=== PATIENT | female | born 2000 | race Caucasian/White ===

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

== ENCOUNTER 2025-03-20 13:24 | Emergency (ER) | payer BC ==
--- OUTSIDE RECORDS SUMMARY | 2025-03-20 13:32 | XMS REPORT | Continuity of Care Document ---
Author Name Unknown Address [address] [facility] [place] [address] [facility] [place] Address [address] 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 Role Phone Jackie Shea Primary Care Physician [phone] Devante Drew Attending Clinician [phone] Tammie, Sathya - Db Attending Clinician Unavailable DEVANTE EAGLE Attending Clinician Unavailable Doctor Unassigned, [place] Attending Clinician U Jermaine Mustafa Attending Clinician Unavailable Jackie Shea Attending Clinician [phone] Devante Drew Attending Clinician [phone] Isi Hurd LVN Attending Clinician Unavai SIERRA Amaro Attending Clinician UnavailMINESH Price Attending Clinician Unavailable HEIDI HERMOSILLO Attending Clinician Unavailable Heidi Schumacher Attending Clinician [phone] JACKIE EASTMAN Attending Clinician Unavailable Sathya Nunez Attending Clinician Unavailable Lab, Ang - Db Attending Clinician Unavailable DEYSI ROBERT Attending Clinician Unava ilMARVIN GimenezY Attending Clinician Unavailbakari e VIVIAN NOLASCO Attending Clinician Unavailable JANNY MIRANDA Attending Clinician Unavailable KRSITA BARBER Attending Clinician Unavaila GRIS Treadwell Attending Clinician Unavaila MAO Goff M.D. Attending Clinician STAR Francis Psy.D. Attending Clinician Unavaila MISSY Govea Attending Clinician Unavailab FRED Lees, PLyubovALyubov Attending Clinician Unavailab SANDER Miramontes M.D. Attending Clinician Unavailab FITO Frias PJose Luis Attending Clinician Liliana dominguez KNOW, DOES_NOT Admitting Clinician Unavailable HEIDI HERMOSILLO Admitting Clinician Unavailable VIVIAN NOLASCO Admitting Clinician Unavailable MISSY MURRAY Admitting Clinician Unavailab le Payers Payer Name Policy Type Policy Number Effective Date Expirati on Date Source [place] [id number] 2022 00:00:00 [employer]IG[employer] II [id number] 2021 00:00:00 Problems Condition Name Condition Details Condition Category Status Onset Date Resolution Date Last Treatment Date Treating Clinician Comments Source Wellness examinatio n Wellness examinatio n Disease Active 03-16 00:00: 00 [facility] Encounter for antibody response examinatio n Encounter for antibody response examinatio n Disease Active 03-16 00:00: 00 [facility] Recurrent acute suppurativ e otitis media with spontaneou s rupture of left tympanic membrane Recurrent acute suppurativ e otitis media with spontaneou s rupture of left tympanic membrane Disease Active 04-18 00:00: 00 [facility] Tinnitus of both ears Tinnitus of both ears Disease Active 04-18 00:00: 00 [facility] Upper respirator y tract infection, unspecifie d type Upper respirator y tract infection, unspecifie d type Disease Active 04-08 00:00: 00 [facility] Pain in joint, lower leg Pain in joint, lower leg Disease Active 08-05 00:00: 00 Overview: Formattin g of this note might be different from the original. Knee pain; resolved [facility] Anterior cruciate ligament complete tear, left, subsequent encounter Anterior cruciate ligament complete tear, left, subsequent encounter Problem Active [facility] Left knee pain Left knee pain Problem Active [facility] Concussion with loss of consciousn ess, initial encounter Concussion with loss of consciousn ess, initial encounter Problem Active [facility] Allergies, Adverse Reactions, Alerts Allergy Name Allergy Type Status Severity Reaction(s) Onset Date Inactive Date Treating Clinician Comments Source codeine DA Active U HIVES 05-30 00:00: 00 [facility] doxycycl ine DA Active U HIVES 05-30 00:00: 00 [facility] vancomyc in DA Active U rash 05-30 00:00: 00 [facility] CODEINE DRUG INGREDI Active Unknown-Cmnt 08-19 00:00: 00 [facility] DOXYCYCL INE DRUG INGREDI Active Unknown-Cmnt 08-19 00:00: 00 [facility] Codeine Propensi ty to adverse reaction s Active Unknown - See comments 08-19 00:00: 00 [facility] Doxycycl ine Propensi ty to adverse reaction s Active Unknown - See comments 08-19 00:00: 00 [facility] Family History Family Member Diagnosis Comments Start Date Stop Date Sourc e Maternal grandfather ALS (amyotrophic lateral sclerosis) [facility] Maternal grandfather Alzheimer s dementia [facility] Maternal grandmother Diabetes [facility] Maternal grandmother Hypertension [facility] Natural mother Hypothyroidism [facility] Paternal grandmother Melanoma [facility] Paternal grandmother Diabetes [facility] Paternal grandmother Lung Cancer [facility] Natural sister Hypothyroidism [facility] Social History Social Habit Start Date Stop Date Quantity Comments Source Gender [facility] Not [facility] History SDOH Alcohol Std Drinks [facility] History SDOH Alcohol Binge [facility] History SDOH Alcohol Comment [facility] History of Social function 2025-03-16 00:00:00 2025-03-16 00:00:00 [facility] Exposure to SARS-CoV-2 (event) 2023-04-08 00:00:00 2023-04-18 15:04:00 Not sure [facility] Alcoholic beverage intake 2023-04-18 00:00:00 2023-04-18 00:00:00 Lifetime non-drinker (finding) [facility] Tobacco use and exposure 2022-08-26 00:00:00 2022-08-26 00:00:00 Smokeless tobacco non-user [facility] Alcohol intake 2021-04-20 00:00:00 2021-04-20 00:00:00 Lifetime non-drinker (finding) [facility] History SDOH Alcohol Frequency 2019-08-30 00:00:00 2019-08-30 00:00:00 1 [facility] Sex assigned at 2000 00:00:00 2000 00:00:00 [facility] Smoking Status Start Date Stop Date Source Never smoked tobacco [facility] Medications Ordered Medication Name Filled Medication Name Start Date Stop Date Current Medication? Ordering Clinician Indication Dosage Frequency Signature (SIG) Comments Components Source citalopram 20 mg tablet 05-13 00:00: 00 03-16 00:00 :00 No [id number] 30mg Take 1.5 tablets by mouth in the morning. [facility] valACYclovi r (VALTREX) 500 mg tablet 04-22 00:00: 00 Yes [id number] 500mg Take 1 tablet by mouth in the morning and 1 tablet in the evening. [facility] predniSONE 20 mg tablet 04-18 00:00: 00 Yes [id number] 02 20mg Take 1 tablet by mouth in the morning. [facility] amoxicillin -clavulanat e (AUGMENTIN) 875-125 mg per tablet 04-18 00:00: 00 04-26 04:59 :00 No [id number] 02 1{tbl} Take 1 tablet by mouth in the morning and 1 tablet in the evening. Do all this for 7 days. [facility] albuterol 90 mcg/actuati on inhaler 04-08 00:00: 00 Yes [id number] 2{puff} Inhale 2 Puffs every 6 (six) hours as needed for Wheezing or Shortness of Breath. [facility] bromphenira mine-pseudo ephedrine-D M (BROMFED DM) 2-30-10 mg/5 mL syrup 04-08 00:00: 00 04-19 04:59 :00 No [id number] 10mL Take 10 mL by mouth 4 (four) times daily as needed for Congestion /Allergies for up to 10 days. [facility] methylPREDN ISolone (MEDROL, PRISCILLA,) 4 mg tablets 04-08 00:00: 00 04-14 04:59 :00 No [id number] Take by mouth SEE-INSTRU CTIONS for 5 days. follow package directions [facility] citalopram 20 mg tablet 03-31 00:00: 00 05-13 00:00 :00 No [id number] 30mg Take 1.5 tablets by mouth in the morning. [facility] citalopram 20 mg tablet 4-17 00:00: 00 03-31 00:00 :00 No [id number] 30mg Take 1.5 tablets by mouth in the morning. [facility] valACYclovi r (VALTREX) 500 mg tablet 3-31 00:00: 00 04-22 00:00 :00 No [id number] 500mg Take 1 tablet by mouth in the morning and 1 tablet in the evening. [facility] citalopram 20 mg tablet 3-20 00:00: 00 03-06 00:00 :00 No [id number] 20mg Take 1 tablet by mouth in the morning. [facility] valACYclovi r (VALTREX) 500 mg tablet 2-25 00:00: 00 02-28 00:00 :00 No [id number] 500mg Take 1 tablet by mouth in the morning and 1 tablet in the evening. [facility] citalopram 20 mg tablet 1-02 00:00: 00 02-17 00:00 :00 No [id number] 20mg TAKE 1 TABLET BY MOUTH IN THE MORNING [facility] citalopram 20 mg tablet 2021-12 0 00:00: 00 Yes [id number] 20mg Take 1 tablet by mouth in the morning. [facility] valACYclovi r (VALTREX) 500 mg tablet 2021-12 0-07 00:00: 00 01-23 00:00 :00 No [id number] 500mg Take 1 tablet by mouth in the morning and 1 tablet in the evening. [facility] citalopram 20 mg tablet 9- 00:00: 00 09-24 00:00 :00 No [id number] 20mg Take 1 tablet by mouth in the morning. [facility] valACYclovi r (VALTREX) 500 mg tablet 3-31 00:00: 00 09-06 00:00 :00 No [id number] 500mg Take 1 tablet by mouth 2 (two) times daily. [facility] citalopram 20 mg tablet 3-14 00:00: 00 08-26 00:00 :00 No [id number] 20mg Take 1 tablet by mouth daily. [facility] SERTraline (ZOLOFT) 50 mg tablet 5-06 00:00: 00 07-02 00:00 :00 No [id number] 50mg Take 1 tablet by mouth at bedtime for 90 days. Take 25mg first week, then 50mg starting week 2 [facility] amantadine HCL 100 mg capsule 7-04 00:00: 00 02-08 00:00 :00 No [facility] Amantadine HCl - 100 MG Oral Capsule Amantadine HCl - 100 MG Oral Capsule 6-04 00:00: 00 Yes MAO JAIN M.D. Q0.5D TAKE 1 CAPSULE TWICE DAILY. [facility] Immunizations Ordered Immunization Name Filled Immunization Name Date Status Comments Source Influenza Virus Vaccine Quad ID [id number] YRS 2024-10-05 00:00:00 Completed TDAP 2024-03-10 00:00:00 Completed PPD (TB) 2022-05-07 00:00:00 Completed [facility] PPD (TB) 2022-05-07 00:00:00 Completed [facility] PPD (TB) 2022-05-07 00:00:00 Completed [facility] PPD (TB) 2022-05-07 00:00:00 Completed [facility] PPD (TB) 2022-05-07 00:00:00 Completed [facility] PPD (TB) 2022-05-07 00:00:00 Completed [facility] PPD (TB) 2022-05-07 00:00:00 Completed [facility] PPD (TB) 2022-05-07 00:00:00 Completed [facility] PPD (TB) 2022-05-07 00:00:00 Completed [facility] PPD (TB) 2022-05-07 00:00:00 Completed [facility] PPD (TB) 2022-05-07 00:00:00 Completed [facility] PPD (TB) 2022-05-07 00:00:00 Completed [facility] PPD (TB) 2022-05-07 00:00:00 Completed [facility] PPD (TB) 2022-05-07 00:00:00 Completed [facility] PPD (TB) 2022-05-07 00:00:00 Completed [facility] PPD (TB) 2022-05-07 00:00:00 Completed [facility] PPD (TB) 2022-05-07 00:00:00 Completed [facility] SARS-COV-2 COVID-19 MODERNA VACCINE 2021-04-30 00:00:00 Completed [facility] SARS-COV-2 COVID-19 MODERNA VACCINE 2021-04-30 00:00:00 Completed [facility] SARS-COV-2 COVID-19 MODERNA 12+ YRS VACCINE 2021-04-30 00:00:00 Completed [facility] SARS-COV-2 COVID-19 MODERNA 12+ YRS VACCINE 2021-04-30 00:00:00 Completed [facility] SARS-COV-2 COVID-19 MODERNA 12+ YRS VACCINE 2021-04-30 00:00:00 Completed [facility] SARS-COV-2 COVID-19 MODERNA 12+ YRS VACCINE 2021-04-30 00:00:00 Completed [facility] SARS-COV-2 COVID-19 MODERNA 12+ YRS VACCINE 2021-04-30 00:00:00 Completed [facility] SARS-COV-2 COVID-19 MODERNA 12+ YRS VACCINE 2021-04-30 00:00:00 Completed [facility] SARS-COV-2 COVID-19 MODERNA 12+ YRS VACCINE 2021-04-30 00:00:00 Completed [facility] SARS-COV-2 COVID-19 MODERNA 12+ YRS VACCINE 2021-04-30 00:00:00 Completed [facility] SARS-COV-2 COVID-19 MODERNA 12+ YRS VACCINE 2021-04-30 00:00:00 Completed [facility] SARS-COV-2 COVID-19 MODERNA 12+ YRS VACCINE 2021-04-30 00:00:00 Completed [facility] SARS-COV-2 COVID-19 MODERNA 12+ YRS VACCINE 2021-04-30 00:00:00 Completed [facility] SARS-COV-2 COVID-19 MODERNA 12+ YRS VACCINE 2021-04-30 00:00:00 Completed [facility] SARS-COV-2 COVID-19 MODERNA 12+ YRS VACCINE 2021-04-30 00:00:00 Completed [facility] SARS-COV-2 COVID-19 MODERNA 12+ YRS VACCINE 2021-04-30 00:00:00 Completed [facility] SARS-COV-2 COVID-19 MODERNA 12+ YRS VACCINE 2021-04-30 00:00:00 Completed [facility] SARS-COV-2 COVID-19 MODERNA VACCINE 2021-04-02 00:00:00 Completed [facility] SARS-COV-2 COVID-19 MODERNA VACCINE 2021-04-02 00:00:00 Completed [facility] SARS-COV-2 COVID-19 MODERNA 12+ YRS VACCINE 2021-04-02 00:00:00 Completed [facility] SARS-COV-2 COVID-19 MODERNA 12+ YRS VACCINE 2021-04-02 00:00:00 Completed [facility] SARS-COV-2 COVID-19 MODERNA 12+ YRS VACCINE 2021-04-02 00:00:00 Completed [facility] SARS-COV-2 COVID-19 MODERNA 12+ YRS VACCINE 2021-04-02 00:00:00 Completed [facility] SARS-COV-2 COVID-19 MODERNA 12+ YRS VACCINE 2021-04-02 00:00:00 Completed [facility] SARS-COV-2 COVID-19 MODERNA 12+ YRS VACCINE 2021-04-02 00:00:00 Completed [facility] SARS-COV-2 COVID-19 MODERNA 12+ YRS VACCINE 2021-04-02 00:00:00 Completed [facility] SARS-COV-2 COVID-19 MODERNA 12+ YRS VACCINE 2021-04-02 00:00:00 Completed [facility] SARS-COV-2 COVID-19 MODERNA 12+ YRS VACCINE 2021-04-02 00:00:00 Completed [facility] SARS-COV-2 COVID-19 MODERNA 12+ YRS VACCINE 2021-04-02 00:00:00 Completed [facility] SARS-COV-2 COVID-19 MODERNA 12+ YRS VACCINE 2021-04-02 00:00:00 Completed [facility] SARS-COV-2 COVID-19 MODERNA 12+ YRS VACCINE 2021-04-02 00:00:00 Completed [facility] SARS-COV-2 COVID-19 MODERNA 12+ YRS VACCINE 2021-04-02 00:00:00 Completed [facility] SARS-COV-2 COVID-19 MODERNA 12+ YRS VACCINE 2021-04-02 00:00:00 Completed [facility] SARS-COV-2 COVID-19 MODERNA 12+ YRS VACCINE 2021-04-02 00:00:00 Completed [facility] Twinrix (hep a/hep b) 2020-03-16 00:00:00 Completed [facility] Twinrix (hep a/hep b) 2020-03-16 00:00:00 Completed [facility] Twinrix (hep a/hep b) 2020-03-16 00:00:00 Completed [facility] Twinrix (hep a/hep b) 2020-03-16 00:00:00 Completed [facility] Twinrix (hep a/hep b) 2020-03-16 00:00:00 Completed [facility] Twinrix (hep a/hep b) 2020-03-16 00:00:00 Completed [facility] Twinrix (hep a/hep b) 2020-03-16 00:00:00 Completed [facility] Twinrix (hep a/hep b) 2020-03-16 00:00:00 Completed [facility] Twinrix (hep a/hep b) 2020-03-16 00:00:00 Completed [facility] Twinrix (hep a/hep b) 2020-03-16 00:00:00 Completed [facility] Twinrix (hep a/hep b) 2020-03-16 00:00:00 Completed [facility] Twinrix (hep a/hep b) 2020-03-16 00:00:00 Completed [facility] Twinrix (hep a/hep b) 2020-03-16 00:00:00 Completed [facility] Twinrix (hep a/hep b) 2020-03-16 00:00:00 Completed [facility] Twinrix (hep a/hep b) 2020-03-16 00:00:00 Completed [facility] Twinrix (hep a/hep b) 2020-03-16 00:00:00 Completed [facility] Twinrix (hep a/hep b) 2020-03-16 00:00:00 Completed [facility] MMR 2019-12-03 00:00:00 Completed [facility] MMR 2019-12-03 00:00:00 Completed [facility] MMR 2019-12-03 00:00:00 Completed [facility] MMR 2019-12-03 00:00:00 Completed [facility] MMR 2019-12-03 00:00:00 Completed [facility] MMR 2019-12-03 00:00:00 Completed [facility] MMR 2019-12-03 00:00:00 Completed [facility] MMR 2019-12-03 00:00:00 Completed [facility] MMR 2019-12-03 00:00:00 Completed [facility] MMR 2019-12-03 00:00:00 Completed [facility] MMR 2019-12-03 00:00:00 Completed [facility] MMR 2019-12-03 00:00:00 Completed [facility] MMR 2019-12-03 00:00:00 Completed [facility] MMR 2019-12-03 00:00:00 Completed [facility] MMR 2019-12-03 00:00:00 Completed [facility] MMR 2019-12-03 00:00:00 Completed [facility] MMR 2019-12-03 00:00:00 Completed [facility] Twinrix (hep a/hep b) 2019-11-08 00:00:00 Completed [facility] Twinrix (hep a/hep b) 2019-11-08 00:00:00 Completed [facility] Twinrix (hep a/hep b) 2019-11-08 00:00:00 Completed [facility] Twinrix (hep a/hep b) 2019-11-08 00:00:00 Completed [facility] Twinrix (hep a/hep b) 2019-11-08 00:00:00 Completed [facility] Twinrix (hep a/hep b) 2019-11-08 00:00:00 Completed [facility] Twinrix (hep a/hep b) 2019-11-08 00:00:00 Completed [facility] Twinrix (hep a/hep b) 2019-11-08 00:00:00 Completed [facility] Twinrix (hep a/hep b) 2019-11-08 00:00:00 Completed [facility] Twinrix (hep a/hep b) 2019-11-08 00:00:00 Completed [facility] Twinrix (hep a/hep b) 2019-11-08 00:00:00 Completed [facility] Twinrix (hep a/hep b) 2019-11-08 00:00:00 Completed [facility] Twinrix (hep a/hep b) 2019-11-08 00:00:00 Completed [facility] Twinrix (hep a/hep b) 2019-11-08 00:00:00 Completed [facility] Twinrix (hep a/hep b) 2019-11-08 00:00:00 Completed [facility] Twinrix (hep a/hep b) 2019-11-08 00:00:00 Completed [facility] Twinrix (hep a/hep b) 2019-11-08 00:00:00 Completed [facility] HEP B, Adult Dosage 2019-09-15 00:00:00 Completed [facility] PPD (TB) 2019-09-15 00:00:00 Completed [facility] HEP B, Adult Dosage 2019-09-15 00:00:00 Completed [facility] PPD (TB) 2019-09-15 00:00:00 Completed [facility] HEP B, Adult Dosage 2019-09-15 00:00:00 Completed [facility] PPD (TB) 2019-09-15 00:00:00 Completed [facility] HEP B, Adult Dosage 2019-09-15 00:00:00 Completed [facility] PPD (TB) 2019-09-15 00:00:00 Completed [facility] HEP B, Adult Dosage 2019-09-15 00:00:00 Completed [facility] PPD (TB) 2019-09-15 00:00:00 Completed [facility] HEP B, Adult Dosage 2019-09-15 00:00:00 Completed [facility] PPD (TB) 2019-09-15 00:00:00 Completed [facility] HEP B, Adult Dosage 2019-09-15 00:00:00 Completed [facility] PPD (TB) 2019-09-15 00:00:00 Completed [facility] HEP B, Adult Dosage 2019-09-15 00:00:00 Completed [facility] PPD (TB) 2019-09-15 00:00:00 Completed [facility] HEP B, Adult Dosage 2019-09-15 00:00:00 Completed [facility] PPD (TB) 2019-09-15 00:00:00 Completed [facility] HEP B, Adult Dosage 2019-09-15 00:00:00 Completed [facility] PPD (TB) 2019-09-15 00:00:00 Completed [facility] HEP B, Adult Dosage 2019-09-15 00:00:00 Completed [facility] PPD (TB) 2019-09-15 00:00:00 Completed [facility] HEP B, Adult Dosage 2019-09-15 00:00:00 Completed [facility] PPD (TB) 2019-09-15 00:00:00 Completed [facility] HEP B, Adult Dosage 2019-09-15 00:00:00 Completed [facility] PPD (TB) 2019-09-15 00:00:00 Completed [facility] HEP B, Adult Dosage 2019-09-15 00:00:00 Completed [facility] PPD (TB) 2019-09-15 00:00:00 Completed [facility] HEP B, Adult Dosage 2019-09-15 00:00:00 Completed [facility] PPD (TB) 2019-09-15 00:00:00 Completed [facility] HEP B, Adult Dosage 2019-09-15 00:00:00 Completed [facility] PPD (TB) 2019-09-15 00:00:00 Completed [facility] HEP B, Adult Dosage 2019-09-15 00:00:00 Completed [facility] PPD (TB) 2019-09-15 00:00:00 Completed [facility] MMR Booster 2019-09-02 00:00:00 Completed [facility] MMR Booster 2019-09-02 00:00:00 Completed [facility] MMR Booster 2019-09-02 00:00:00 Completed [facility] MMR Booster 2019-09-02 00:00:00 Completed [facility] MMR Booster 2019-09-02 00:00:00 Completed [facility] MMR Booster 2019-09-02 00:00:00 Completed [facility] MMR Booster 2019-09-02 00:00:00 Completed [facility] MMR Booster 2019-09-02 00:00:00 Completed [facility] MMR Booster 2019-09-02 00:00:00 Completed [facility] MMR Booster 2019-09-02 00:00:00 Completed [facility] MMR Booster 2019-09-02 00:00:00 Completed [facility] MMR Booster 2019-09-02 00:00:00 Completed [facility] MMR Booster 2019-09-02 00:00:00 Completed [facility] MMR Booster 2019-09-02 00:00:00 Completed [facility] MMR Booster 2019-09-02 00:00:00 Completed [facility] MMR Booster 2019-09-02 00:00:00 Completed [facility] MMR Booster 2019-09-02 00:00:00 Completed [facility] Hepatitis A Adult 2019-08-30 00:00:00 Completed [facility] PPD (TB) 2019-08-30 00:00:00 Completed [facility] Varicella (varivax)(chicken pox) 2019-08-30 00:00:00 Completed [facility] Hepatitis A Adult 2019-08-30 00:00:00 Completed [facility] PPD (TB) 2019-08-30 00:00:00 Completed [facility] Varicella (varivax)(chicken pox) 2019-08-30 00:00:00 Completed [facility] Hepatitis A Adult 2019-08-30 00:00:00 Completed [facility] PPD (TB) 2019-08-30 00:00:00 Completed [facility] Varicella (varivax)(chicken pox) 2019-08-30 00:00:00 Completed [facility] Hepatitis A Adult 2019-08-30 00:00:00 [facility] [place] PPD (TB) 2019-08-30 00:00:00 Completed [facility] [place] Varicella (varivax)(chicken pox) 2019-08-30 00:00:00 Completed [facility] [place] Hepatitis A Adult 2019-08-30 00:00:00 Completed [facility] [place] PPD (TB) 2019-08-30 00:00:00 Completed [facility] [place] Varicella (varivax)(chicken pox) 2019-08-30 00:00:00 Completed [facility] [place] Hepatitis A Adult 2019-08-30 00:00:00 Completed [facility] [place] PPD (TB) 2019-08-30 00:00:00 Completed [facility] [place] Varicella (varivax)(chicken pox) 2019-08-30 00:00:00 Completed [facility] [place] Hepatitis A Adult 2019-08-30 00:00:00 Completed [facility] [place] PPD (TB) 2019-08-30 00:00:00 Completed [facility] [place] Varicella (varivax)(chicken pox) 2019-08-30 00:00:00 Completed [facility] [place] Hepatitis A Adult 2019-08-30 00:00:00 Completed [facility] [place] PPD (TB) 2019-08-30 00:00:00 Completed [facility] [place] Varicella (varivax)(chicken pox) 2019-08-30 00:00:00 Completed [facility] [place] Hepatitis A Adult 2019-08-30 00:00:00 Completed [facility] [place] PPD (TB) 2019-08-30 00:00:00 Completed [facility] [place] Varicella (varivax)(chicken pox) 2019-08-30 00:00:00 Completed [facility] [place] Hepatitis A Adult 2019-08-30 00:00:00 Completed [facility] [place] PPD (TB) 2019-08-30 00:00:00 Completed [facility] [place] Varicella (varivax)(chicken pox) 2019-08-30 00:00:00 Completed [facility] [place] Hepatitis A Adult 2019-08-30 00:00:00 Completed [facility] [place] PPD (TB) 2019-08-30 00:00:00 Completed [facility] [place] Varicella (varivax)(chicken pox) 2019-08-30 00:00:00 Completed [facility] [place] Hepatitis A Adult 2019-08-30 00:00:00 Completed [facility] [place] PPD (TB) 2019-08-30 00:00:00 Completed [facility] [place] Varicella (varivax)(chicken pox) 2019-08-30 00:00:00 Completed [facility] [place] Hepatitis A Adult 2019-08-30 00:00:00 Completed [facility] [place] PPD (TB) 2019-08-30 00:00:00 Completed [facility] [place] Varicella (varivax)(chicken pox) 2019-08-30 00:00:00 Completed [facility] [place] Hepatitis A Adult 2019-08-30 00:00:00 Completed [facility] [place] PPD (TB) 2019-08-30 00:00:00 Completed [facility] [place] Varicella (varivax)(chicken pox) 2019-08-30 00:00:00 Completed [facility] [place] Hepatitis A Adult 2019-08-30 00:00:00 Completed [facility] [place] PPD (TB) 2019-08-30 00:00:00 Completed [facility] [place] Varicella (varivax)(chicken pox) 2019-08-30 00:00:00 Completed [facility] [place] Hepatitis A Adult 2019-08-30 00:00:00 Completed [facility] [place] PPD (TB) 2019-08-30 00:00:00 Completed [facility] [place] Varicella (varivax)(chicken pox) 2019-08-30 00:00:00 Completed [facility] [place] Hepatitis A Adult 2019-08-30 00:00:00 Completed [facility] [place] PPD (TB) 2019-08-30 00:00:00 Completed [facility] [place] Varicella (varivax)(chicken pox) 2019-08-30 00:00:00 Completed [facility] [place] Gardasil Intramuscular Suspension 2012-12-05 00:00:00 Completed [facility] HPV 2012-12-05 00:00:00 Completed [facility] [place] HPV 2012-12-05 00:00:00 Completed [facility] [place] HPV 2012-12-05 00:00:00 Completed [facility] [place] HPV 2012-12-05 00:00:00 Completed [facility] [place] HPV 2012-12-05 00:00:00 Completed [facility] [place] HPV 2012-12-05 00:00:00 Completed [facility] [place] HPV 2012-12-05 00:00:00 Completed [facility] [place] HPV 2012-12-05 00:00:00 Completed [facility] [place] HPV 2012-12-05 00:00:00 Completed [facility] [place] HPV 2012-12-05 00:00:00 Completed [facility] [place] HPV 2012-12-05 00:00:00 Completed [facility] [place] HPV 2012-12-05 00:00:00 Completed [facility] [place] HPV 2012-12-05 00:00:00 Completed [facility] [place] HPV 2012-12-05 00:00:00 Completed [facility] [place] HPV 2012-12-05 00:00:00 Completed [facility] [place] HPV 2012-12-05 00:00:00 Completed [facility] [place] HPV 2012-12-05 00:00:00 Completed [facility] [place] Varivax 1350 PFU/0.5ML Subcutaneous Injectable 2012-07-17 00:00:00 Completed [facility] Boostrix 5-2.5-18.5 Intramuscular Suspension 2012-07-17 00:00:00 Completed [facility] Meningococcal, MCV4, unspecified conjugate formulation(groups A, C, Y and W-135) 2012-07-17 00:00:00 Completed [facility] TDAP (ADACEL) VACCINE 2012-07-17 00:00:00 Completed [facility] [place] Meningococcal Vaccine 2012-07-17 00:00:00 Completed [facility] [place] Varicella (varivax)(chicken pox) 2012-07-17 00:00:00 Completed [facility] [place] TDAP (ADACEL) VACCINE 2012-07-17 00:00:00 Completed [facility] [place] Meningococcal Vaccine 2012-07-17 00:00:00 Completed [facility] [place] Varicella (varivax)(chicken pox) 2012-07-17 00:00:00 Completed [facility] [place] TDAP (ADACEL) VACCINE 2012-07-17 00:00:00 Completed [facility] [place] Meningococcal Vaccine 2012-07-17 00:00:00 Completed [facility] [place] Varicella (varivax)(chicken pox) 2012-07-17 00:00:00 Completed [facility] [place] TDAP (ADACEL) VACCINE 2012-07-17 00:00:00 Completed [facility] [place] Meningococcal Vaccine 2012-07-17 00:00:00 Completed [facility] [place] TDAP (ADACEL) VACCINE 2012-07-17 00:00:00 Completed [facility] [place] Meningococcal Vaccine 2012-07-17 00:00:00 Completed [facility] [place] Varicella (varivax)(chicken pox) 2012-07-17 00:00:00 Completed [facility] [place] TDAP (ADACEL) VACCINE 2012-07-17 00:00:00 Completed [facility] [place] Meningococcal Vaccine 2012-07-17 00:00:00 Completed [facility] [place] Varicella (varivax)(chicken pox) 2012-07-17 00:00:00 Completed [facility] [place] TDAP (ADACEL) VACCINE 2012-07-17 00:00:00 Completed [facility] [place] Meningococcal Vaccine 2012-07-17 00:00:00 Completed [facility] [place] Varicella (varivax)(chicken pox) 2012-07-17 00:00:00 Completed [facility] [place] TDAP (ADACEL) VACCINE 2012-07-17 00:00:00 Completed [facility] [place] Meningococcal Vaccine 2012-07-17 00:00:00 Completed [facility] [place] Varicella (varivax)(chicken pox) 2012-07-17 00:00:00 Completed [facility] [place] TDAP (ADACEL) VACCINE 2012-07-17 00:00:00 Completed [facility] [place] Meningococcal Vaccine 2012-07-17 00:00:00 Completed [facility] [place] Varicella (varivax)(chicken pox) 2012-07-17 00:00:00 Completed [facility] [place] TDAP (ADACEL) VACCINE 2012-07-17 00:00:00 Completed [facility] [place] Meningococcal Vaccine 2012-07-17 00:00:00 Completed [facility] [place] Varicella (varivax)(chicken pox) 2012-07-17 00:00:00 Completed [facility] [place] TDAP (ADACEL) VACCINE 2012-07-17 00:00:00 Completed [facility] [place] Meningococcal Vaccine 2012-07-17 00:00:00 Completed [facility] [place] Varicella (varivax)(chicken pox) 2012-07-17 00:00:00 Completed [facility] [place] TDAP (ADACEL) VACCINE 2012-07-17 00:00:00 Completed [facility] [place] Meningococcal Vaccine 2012-07-17 00:00:00 Completed [facility] [place] Varicella (varivax)(chicken pox) 2012-07-17 00:00:00 Completed [facility] [place] TDAP (ADACEL) VACCINE 2012-07-17 00:00:00 Completed [facility] [place] Meningococcal Vaccine 2012-07-17 00:00:00 Completed [facility] [place] Varicella (varivax)(chicken pox) 2012-07-17 00:00:00 Completed [facility] [place] TDAP (ADACEL) VACCINE 2012-07-17 00:00:00 Completed [facility] [place] Meningococcal Vaccine 2012-07-17 00:00:00 Completed [facility] [place] Varicella (varivax)(chicken pox) 2012-07-17 00:00:00 Completed [facility] [place] TDAP (ADACEL) VACCINE 2012-07-17 00:00:00 Completed [facility] [place] Meningococcal Vaccine 2012-07-17 00:00:00 Completed [facility] [place] Varicella (varivax)(chicken pox) 2012-07-17 00:00:00 Completed [facility] [place] TDAP (ADACEL) VACCINE 2012-07-17 00:00:00 Completed [facility] [place] Meningococcal Vaccine 2012-07-17 00:00:00 Completed [facility] [place] Varicella (varivax)(chicken pox) 2012-07-17 00:00:00 Completed [facility] [place] Varicella (varivax)(chicken pox) 2012-07-17 00:00:00 Completed [facility] [place] TDAP (ADACEL) VACCINE 2012-07-17 00:00:00 Completed [facility] [place] Meningococcal Vaccine 2012-07-17 00:00:00 Completed [facility] [place] Varicella (varivax)(chicken pox) 2012-07-17 00:00:00 Completed [facility] [place] influenza virus vaccine, unspecified formulation 2004-10-08 00:00:00 Completed [facility] Ipol Injection Injectable 2004-02-27 00:00:00 Completed [facility] M-M-R II Subcutaneous Injectable 2004-02-27 00:00:00 Completed [facility] DTaP, unspecified formulation 2004-02-27 00:00:00 Completed [facility] DTAP 2004-02-27 00:00:00 Completed [facility] [place] MMR 2004-02-27 00:00:00 Completed [facility] [place] Polio (IPV/OPV) 2004-02-27 00:00:00 Completed [facility] [place] DTAP 2004-02-27 00:00:00 Completed [facility] [place] MMR 2004-02-27 00:00:00 Completed [facility] [place] Polio (IPV/OPV) 2004-02-27 00:00:00 Completed [facility] [place] DTAP 2004-02-27 00:00:00 Completed [facility] [place] MMR 2004-02-27 00:00:00 Completed [facility] [place] Polio (IPV/OPV) 2004-02-27 00:00:00 Completed [facility] [place] DTAP 2004-02-27 00:00:00 Completed [facility] [place] Polio (IPV/OPV) 2004-02-27 00:00:00 Completed [facility] [place] DTAP 2004-02-27 00:00:00 Completed [facility] [place] MMR 2004-02-27 00:00:00 Completed [facility] [place] Polio (IPV/OPV) 2004-02-27 00:00:00 Completed [facility] [place] DTAP 2004-02-27 00:00:00 Completed [facility] [place] MMR 2004-02-27 00:00:00 Completed [facility] [place] Polio (IPV/OPV) 2004-02-27 00:00:00 Completed [facility] [place] DTAP 2004-02-27 00:00:00 Completed [facility] [place] MMR 2004-02-27 00:00:00 Completed [facility] [place] Polio (IPV/OPV) 2004-02-27 00:00:00 Completed [facility] [place] DTAP 2004-02-27 00:00:00 Completed [facility] [place] MMR 2004-02-27 00:00:00 Completed [facility] [place] Polio (IPV/OPV) 2004-02-27 00:00:00 Completed [facility] [place] DTAP 2004-02-27 00:00:00 Completed [facility] [place] MMR 2004-02-27 00:00:00 Completed [facility] [place] Polio (IPV/OPV) 2004-02-27 00:00:00 Completed [facility] [place] DTAP 2004-02-27 00:00:00 Completed [facility] [place] MMR 2004-02-27 00:00:00 Completed [facility] [place] Polio (IPV/OPV) 2004-02-27 00:00:00 Completed [facility] [place] DTAP 2004-02-27 00:00:00 Completed [facility] [place] MMR 2004-02-27 00:00:00 Completed [facility] [place] Polio (IPV/OPV) 2004-02-27 00:00:00 Completed [facility] [place] DTAP 2004-02-27 00:00:00 Completed [facility] [place] MMR 2004-02-27 00:00:00 Completed [facility] [place] Polio (IPV/OPV) 2004-02-27 00:00:00 Completed [facility] [place] DTAP 2004-02-27 00:00:00 Completed [facility] [place] MMR 2004-02-27 00:00:00 Completed [facility] [place] Polio (IPV/OPV) 2004-02-27 00:00:00 Completed [facility] [place] DTAP 2004-02-27 00:00:00 Completed [facility] [place] MMR 2004-02-27 00:00:00 Completed [facility] [place] Polio (IPV/OPV) 2004-02-27 00:00:00 Completed [facility] [place] DTAP 2004-02-27 00:00:00 Completed [facility] [place] MMR 2004-02-27 00:00:00 Completed [facility] [place] Polio (IPV/OPV) 2004-02-27 00:00:00 Completed [facility] [place] DTAP 2004-02-27 00:00:00 Completed [facility] [place] MMR 2004-02-27 00:00:00 Completed [facility] [place] Polio (IPV/OPV) 2004-02-27 00:00:00 Completed [facility] [place] MMR 2004-02-27 00:00:00 Completed [facility] [place] DTAP 2004-02-27 00:00:00 Completed [facility] [place] MMR 2004-02-27 00:00:00 Completed [facility] [place] Polio (IPV/OPV) 2004-02-27 00:00:00 Completed [facility] [place] Hib, Haemophilus influenzae type b vaccine, HbOC conjugate 2001-12-11 00:00:00 Completed [facility] Pneumo (Prevnar 7) 2001-12-11 00:00:00 Completed [facility] DTaP, unspecified formulation 2001-12-11 00:00:00 Completed [facility] DTAP 2001-12-11 00:00:00 Completed [facility] [place] HIB 4 Dose Schedule 2001-12-11 00:00:00 Completed [facility] [place] Pneumococcal 13 Conjugate, PCV13 (Prevnar 13) 2001-12-11 00:00:00 Completed [facility] [place] DTAP 2001-12-11 00:00:00 Completed [facility] [place] HIB 4 Dose Schedule 2001-12-11 00:00:00 Completed [facility] [place] Pneumococcal 13 Conjugate, PCV13 (Prevnar 13) 2001-12-11 00:00:00 Completed [facility] [place] DTAP 2001-12-11 00:00:00 Completed [facility] [place] HIB 4 Dose Schedule 2001-12-11 00:00:00 Completed [facility] [place] Pneumococcal 13 Conjugate, PCV13 (Prevnar 13) 2001-12-11 00:00:00 Completed [facility] [place] DTAP 2001-12-11 00:00:00 Completed [facility] [place] HIB 4 Dose Schedule 2001-12-11 00:00:00 Completed [facility] [place] Pneumococcal 13 Conjugate, PCV13 (Prevnar 13) 2001-12-11 00:00:00 Completed [facility] [place] DTAP 2001-12-11 00:00:00 Completed [facility] [place] HIB 4 Dose Schedule 2001-12-11 00:00:00 Completed [facility] [place] Pneumococcal 13 Conjugate, PCV13 (Prevnar 13) 2001-12-11 00:00:00 Completed [facility] [place] DTAP 2001-12-11 00:00:00 Completed [facility] [place] HIB 4 Dose Schedule 2001-12-11 00:00:00 Completed [facility] [place] Pneumococcal 13 Conjugate, PCV13 (Prevnar 13) 2001-12-11 00:00:00 Completed [facility] [place] DTAP 2001-12-11 00:00:00 Completed [facility] [place] HIB 4 Dose Schedule 2001-12-11 00:00:00 Completed [facility] [place] Pneumococcal 13 Conjugate, PCV13 (Prevnar 13) 2001-12-11 00:00:00 Completed [facility] [place] DTAP 2001-12-11 00:00:00 Completed [facility] [place] HIB 4 Dose Schedule 2001-12-11 00:00:00 Completed [facility] [place] Pneumococcal 13 Conjugate, PCV13 (Prevnar 13) 2001-12-11 00:00:00 Completed [facility] [place] DTAP 2001-12-11 00:00:00 Completed [facility] [place] HIB 4 Dose Schedule 2001-12-11 00:00:00 Completed [facility] [place] Pneumococcal 13 Conjugate, PCV13 (Prevnar 13) 2001-12-11 00:00:00 Completed [facility] [place] DTAP 2001-12-11 00:00:00 Completed [facility] [place] HIB 4 Dose Schedule 2001-12-11 00:00:00 Completed [facility] [place] Pneumococcal 13 Conjugate, PCV13 (Prevnar 13) 2001-12-11 00:00:00 Completed [facility] [place] DTAP 2001-12-11 00:00:00 Completed [facility] [place] HIB 4 Dose Schedule 2001-12-11 00:00:00 Completed [facility] [place] Pneumococcal 13 Conjugate, PCV13 (Prevnar 13) 2001-12-11 00:00:00 Completed [facility] [place] DTAP 2001-12-11 00:00:00 Completed [facility] [place] HIB 4 Dose Schedule 2001-12-11 00:00:00 Completed [facility] [place] Pneumococcal 13 Conjugate, PCV13 (Prevnar 13) 2001-12-11 00:00:00 Completed [facility] [place] DTAP 2001-12-11 00:00:00 Completed [facility] [place] HIB 4 Dose Schedule 2001-12-11 00:00:00 Completed [facility] [place] Pneumococcal 13 Conjugate, PCV13 (Prevnar 13) 2001-12-11 00:00:00 Completed [facility] [place] DTAP 2001-12-11 00:00:00 Completed [facility] [place] HIB 4 Dose Schedule 2001-12-11 00:00:00 Completed [facility] [place] Pneumococcal 13 Conjugate, PCV13 (Prevnar 13) 2001-12-11 00:00:00 Completed [facility] [place] DTAP 2001-12-11 00:00:00 Completed [facility] [place] HIB 4 Dose Schedule 2001-12-11 00:00:00 Completed [facility] [place] Pneumococcal 13 Conjugate, PCV13 (Prevnar 13) 2001-12-11 00:00:00 Completed [facility] [place] DTAP 2001-12-11 00:00:00 Completed [facility] [place] HIB 4 Dose Schedule 2001-12-11 00:00:00 Completed [facility] [place] Pneumococcal 13 Conjugate, PCV13 (Prevnar 13) 2001-12-11 00:00:00 Completed [facility] [place] DTAP 2001-12-11 00:00:00 Completed [facility] [place] HIB 4 Dose Schedule 2001-12-11 00:00:00 Completed [facility] [place] Pneumococcal 13 Conjugate, PCV13 (Prevnar 13) 2001-12-11 00:00:00 Completed [facility] [place] Hib, Haemophilus influenzae type b vaccine, HbOC conjugate 2001-07-17 00:00:00 Completed [facility] Pneumo (Prevnar 7) 2001-07-17 00:00:00 Completed [facility] DTaP, unspecified formulation 2001-07-17 00:00:00 Completed [facility] DTAP 2001-07-17 00:00:00 Completed [facility] [place] HIB 4 Dose Schedule 2001-07-17 00:00:00 Completed [facility] [place] Pneumococcal 13 Conjugate, PCV13 (Prevnar 13) 2001-07-17 00:00:00 Completed [facility] [place] DTAP 2001-07-17 00:00:00 Completed [facility] [place] HIB 4 Dose Schedule 2001-07-17 00:00:00 Completed [facility] [place] Pneumococcal 13 Conjugate, PCV13 (Prevnar 13) 2001-07-17 00:00:00 Completed [facility] [place] DTAP 2001-07-17 00:00:00 Completed [facility] [place] HIB 4 Dose Schedule 2001-07-17 00:00:00 Completed [facility] [place] Pneumococcal 13 Conjugate, PCV13 (Prevnar 13) 2001-07-17 00:00:00 Completed [facility] [place] DTAP 2001-07-17 00:00:00 Completed [facility] [place] HIB 4 Dose Schedule 2001-07-17 00:00:00 Completed [facility] [place] Pneumococcal 13 Conjugate, PCV13 (Prevnar 13) 2001-07-17 00:00:00 Completed [facility] [place] DTAP 2001-07-17 00:00:00 Completed [facility] [place] HIB 4 Dose Schedule 2001-07-17 00:00:00 Completed [facility] [place] Pneumococcal 13 Conjugate, PCV13 (Prevnar 13) 2001-07-17 00:00:00 Completed [facility] [place] DTAP 2001-07-17 00:00:00 Completed [facility] [place] HIB 4 Dose Schedule 2001-07-17 00:00:00 Completed [facility] [place] Pneumococcal 13 Conjugate, PCV13 (Prevnar 13) 2001-07-17 00:00:00 Completed [facility] [place] DTAP 2001-07-17 00:00:00 Completed [facility] [place] HIB 4 Dose Schedule 2001-07-17 00:00:00 Completed [facility] [place] Pneumococcal 13 Conjugate, PCV13 (Prevnar 13) 2001-07-17 00:00:00 Completed [facility] [place] DTAP 2001-07-17 00:00:00 Completed [facility] [place] HIB 4 Dose Schedule 2001-07-17 00:00:00 Completed [facility] [place] Pneumococcal 13 Conjugate, PCV13 (Prevnar 13) 2001-07-17 00:00:00 Completed [facility] [place] DTAP 2001-07-17 00:00:00 Completed [facility] [place] HIB 4 Dose Schedule 2001-07-17 00:00:00 Completed [facility] [place] Pneumococcal 13 Conjugate, PCV13 (Prevnar 13) 2001-07-17 00:00:00 Completed [facility] [place] DTAP 2001-07-17 00:00:00 Completed [facility] [place] HIB 4 Dose Schedule 2001-07-17 00:00:00 Completed [facility] [place] Pneumococcal 13 Conjugate, PCV13 (Prevnar 13) 2001-07-17 00:00:00 Completed [facility] [place] DTAP 2001-07-17 00:00:00 Completed [facility] [place] HIB 4 Dose Schedule 2001-07-17 00:00:00 Completed [facility] [place] Pneumococcal 13 Conjugate, PCV13 (Prevnar 13) 2001-07-17 00:00:00 Completed [facility] [place] DTAP 2001-07-17 00:00:00 Completed [facility] [place] HIB 4 Dose Schedule 2001-07-17 00:00:00 Completed [facility] [place] Pneumococcal 13 Conjugate, PCV13 (Prevnar 13) 2001-07-17 00:00:00 Completed [facility] [place] DTAP 2001-07-17 00:00:00 Completed [facility] [place] HIB 4 Dose Schedule 2001-07-17 00:00:00 Completed [facility] [place] Pneumococcal 13 Conjugate, PCV13 (Prevnar 13) 2001-07-17 00:00:00 Completed [facility] [place] DTAP 2001-07-17 00:00:00 Completed [facility] [place] HIB 4 Dose Schedule 2001-07-17 00:00:00 Completed [facility] [place] Pneumococcal 13 Conjugate, PCV13 (Prevnar 13) 2001-07-17 00:00:00 Completed [facility] [place] DTAP 2001-07-17 00:00:00 Completed [facility] [place] HIB 4 Dose Schedule 2001-07-17 00:00:00 Completed [facility] [place] Pneumococcal 13 Conjugate, PCV13 (Prevnar 13) 2001-07-17 00:00:00 Completed [facility] [place] DTAP 2001-07-17 00:00:00 Completed [facility] [place] HIB 4 Dose Schedule 2001-07-17 00:00:00 Completed [facility] [place] Pneumococcal 13 Conjugate, PCV13 (Prevnar 13) 2001-07-17 00:00:00 Completed [facility] [place] DTAP 2001-07-17 00:00:00 Completed [facility] [place] HIB 4 Dose Schedule 2001-07-17 00:00:00 Completed [facility] [place] Pneumococcal 13 Conjugate, PCV13 (Prevnar 13) 2001-07-17 00:00:00 Completed [facility] [place] Hepatitis B, pediatric/adolescen t dosage 2000-12-05 00:00:00 Completed [facility] M-M-R II Subcutaneous Injectable 2000-12-05 00:00:00 Completed [facility] Varivax 1350 PFU/0.5ML Subcutaneous Injectable 2000-12-05 00:00:00 Completed [facility] Hep B, Adol or Pedi Dosage 2000-12-05 00:00:00 Completed [facility] [place] MMR 2000-12-05 00:00:00 Completed [facility] [place] Varicella (varivax)(chicken pox) 2000-12-05 00:00:00 Completed [facility] [place] Hep B, Adol or Pedi Dosage 2000-12-05 00:00:00 Completed [facility] [place] MMR 2000-12-05 00:00:00 Completed [facility] [place] Varicella (varivax)(chicken pox) 2000-12-05 00:00:00 Completed [facility] [place] Hep B, Adol or Pedi Dosage 2000-12-05 00:00:00 Completed [facility] [place] MMR 2000-12-05 00:00:00 Completed [facility] [place] Varicella (varivax)(chicken pox) 2000-12-05 00:00:00 [facility] [facility] Hep B, Adol or Pedi Dosage 2000-12-05 00:00:00 Completed [facility] MMR 2000-12-05 00:00:00 Completed [facility] Varicella (varivax)(chicken pox) 2000-12-05 00:00:00 Completed [facility] Hep B, Adol or Pedi Dosage 2000-12-05 00:00:00 Completed [facility] MMR 2000-12-05 00:00:00 Completed [facility] Varicella (varivax)(chicken pox) 2000-12-05 00:00:00 Completed [facility] Hep B, Adol or Pedi Dosage 2000-12-05 00:00:00 Completed [facility] MMR 2000-12-05 00:00:00 Completed [facility] Varicella (varivax)(chicken pox) 2000-12-05 00:00:00 Completed [facility] Hep B, Adol or Pedi Dosage 2000-12-05 00:00:00 Completed [facility] MMR 2000-12-05 00:00:00 Completed [facility] Varicella (varivax)(chicken pox) 2000-12-05 00:00:00 Completed [facility] Hep B, Adol or Pedi Dosage 2000-12-05 00:00:00 Completed [facility] MMR 2000-12-05 00:00:00 Completed [facility] Varicella (varivax)(chicken pox) 2000-12-05 00:00:00 Completed [facility] Hep B, Adol or Pedi Dosage 2000-12-05 00:00:00 Completed [facility] MMR 2000-12-05 00:00:00 Completed [facility] Varicella (varivax)(chicken pox) 2000-12-05 00:00:00 Completed [facility] Hep B, Adol or Pedi Dosage 2000-12-05 00:00:00 Completed [facility] MMR 2000-12-05 00:00:00 Completed [facility] Varicella (varivax)(chicken pox) 2000-12-05 00:00:00 Completed [facility] Hep B, Adol or Pedi Dosage 2000-12-05 00:00:00 Completed [facility] MMR 2000-12-05 00:00:00 Completed [facility] Varicella (varivax)(chicken pox) 2000-12-05 00:00:00 Completed [facility] Hep B, Adol or Pedi Dosage 2000-12-05 00:00:00 Completed [facility] MMR 2000-12-05 00:00:00 Completed [facility] Varicella (varivax)(chicken pox) 2000-12-05 00:00:00 Completed [facility] Hep B, Adol or Pedi Dosage 2000-12-05 00:00:00 Completed [facility] MMR 2000-12-05 00:00:00 Completed [facility] Varicella (varivax)(chicken pox) 2000-12-05 00:00:00 Completed [facility] Hep B, Adol or Pedi Dosage 2000-12-05 00:00:00 Completed [facility] MMR 2000-12-05 00:00:00 Completed [facility] Varicella (varivax)(chicken pox) 2000-12-05 00:00:00 Completed [facility] Hep B, Adol or Pedi Dosage 2000-12-05 00:00:00 Completed [facility] MMR 2000-12-05 00:00:00 Completed [facility] Varicella (varivax)(chicken pox) 2000-12-05 00:00:00 Completed [facility] Hep B, Adol or Pedi Dosage 2000-12-05 00:00:00 Completed [facility] MMR 2000-12-05 00:00:00 Completed [facility] Varicella (varivax)(chicken pox) 2000-12-05 00:00:00 Completed [facility] Hep B, Adol or Pedi Dosage 2000-12-05 00:00:00 Completed [facility] MMR 2000-12-05 00:00:00 Completed [facility] Varicella (varivax)(chicken pox) 2000-12-05 00:00:00 Completed [facility] Hep B, Adol or Pedi Dosage 2000-05-23 00:00:00 Completed [facility] DTAP 2000-05-23 00:00:00 Completed [facility] HIB 4 Dose Schedule 2000-05-23 00:00:00 Completed [facility] Hep B, Adol or Pedi Dosage 2000-05-23 00:00:00 Completed [facility] Hep B, Adol or Pedi Dosage 2000-05-23 00:00:00 Completed [facility] DTAP 2000-05-23 00:00:00 Completed [facility] HIB 4 Dose Schedule 2000-05-23 00:00:00 Completed [facility] Hep B, Adol or Pedi Dosage 2000-05-23 00:00:00 Completed [facility] DTP - HIB (Tetramune) 2000-05-23 00:00:00 Completed [facility] Hepatitis B, pediatric/adolescen t dosage 2000-05-23 00:00:00 Completed [facility] DTAP 2000-05-23 00:00:00 Completed [facility] HIB 4 Dose Schedule 2000-05-23 00:00:00 Completed [facility] Hep B, Adol or Pedi Dosage 2000-05-23 00:00:00 Completed [facility] DTAP 2000-05-23 00:00:00 Completed [facility] HIB 4 Dose Schedule 2000-05-23 00:00:00 Completed [facility] Hep B, Adol or Pedi Dosage 2000-05-23 00:00:00 Completed [facility] DTAP 2000-05-23 00:00:00 Completed [facility] HIB 4 Dose Schedule 2000-05-23 00:00:00 Completed [facility] Hep B, Adol or Pedi Dosage 2000-05-23 00:00:00 Completed [facility] DTAP 2000-05-23 00:00:00 Completed [facility] HIB 4 Dose Schedule 2000-05-23 00:00:00 Completed [facility] DTAP 2000-05-23 00:00:00 Completed [facility] HIB 4 Dose Schedule 2000-05-23 00:00:00 Completed [facility] Hep B, Adol or Pedi Dosage 2000-05-23 00:00:00 Completed [facility] DTAP 2000-05-23 00:00:00 Completed [facility] HIB 4 Dose Schedule 2000-05-23 00:00:00 Completed [facility] Hep B, Adol or Pedi Dosage 2000-05-23 00:00:00 Completed [facility] DTAP 2000-05-23 00:00:00 Completed [facility] HIB 4 Dose Schedule 2000-05-23 00:00:00 Completed [facility] Hep B, Adol or Pedi Dosage 2000-05-23 00:00:00 Completed [facility] DTAP 2000-05-23 00:00:00 Completed [facility] HIB 4 Dose Schedule 2000-05-23 00:00:00 Completed [facility] Hep B, Adol or Pedi Dosage 2000-05-23 00:00:00 Completed [facility] DTAP 2000-05-23 00:00:00 Completed [facility] HIB 4 Dose Schedule 2000-05-23 00:00:00 Completed [facility] Hep B, Adol or Pedi Dosage 2000-05-23 00:00:00 Completed [facility] DTAP 2000-05-23 00:00:00 Completed [facility] HIB 4 Dose Schedule 2000-05-23 00:00:00 Completed [facility] Hep B, Adol or Pedi Dosage 2000-05-23 00:00:00 Completed [facility] DTAP 2000-05-23 00:00:00 Completed [facility] HIB 4 Dose Schedule 2000-05-23 00:00:00 Completed [facility] Hep B, Adol or Pedi Dosage 2000-05-23 00:00:00 Completed [facility] DTAP 2000-05-23 00:00:00 Completed [facility] HIB 4 Dose Schedule 2000-05-23 00:00:00 Completed [facility] Hep B, Adol or Pedi Dosage 2000-05-23 00:00:00 Completed [facility] DTAP 2000-05-23 00:00:00 Completed [facility] HIB 4 Dose Schedule 2000-05-23 00:00:00 Completed [facility] Hep B, Adol or Pedi Dosage 2000-05-23 00:00:00 Completed [facility] DTAP 2000-05-23 00:00:00 Completed [facility] HIB 4 Dose Schedule 2000-05-23 00:00:00 Completed [facility] Hep B, Adol or Pedi Dosage 2000-05-23 00:00:00 Completed [facility] DTAP 2000-05-23 00:00:00 Completed [facility] HIB 4 Dose Schedule 2000-05-23 00:00:00 Completed [facility] DTAP 2000-03-31 00:00:00 Completed [facility] HIB 4 Dose Schedule 2000-03-31 00:00:00 Completed [facility] Polio (IPV/OPV) 2000-03-31 00:00:00 Completed [facility] DTAP 2000-03-31 00:00:00 Completed [facility] HIB 4 Dose Schedule 2000-03-31 00:00:00 Completed [facility] Polio (IPV/OPV) 2000-03-31 00:00:00 Completed [facility] DTAP 2000-03-31 00:00:00 Completed [facility] HIB 4 Dose Schedule 2000-03-31 00:00:00 Completed [facility] Polio (IPV/OPV) 2000-03-31 00:00:00 Completed [facility] DTAP 2000-03-31 00:00:00 Completed [facility] HIB 4 Dose Schedule 2000-03-31 00:00:00 Completed [facility] Polio (IPV/OPV) 2000-03-31 00:00:00 Completed [facility] DTAP 2000-03-31 00:00:00 Completed [facility] HIB 4 Dose Schedule 2000-03-31 00:00:00 Completed [facility] Polio (IPV/OPV) 2000-03-31 00:00:00 Completed [facility] DTAP 2000-03-31 00:00:00 Completed [facility] HIB 4 Dose Schedule 2000-03-31 00:00:00 Completed [facility] Polio (IPV/OPV) 2000-03-31 00:00:00 Completed [facility] DTAP 2000-03-31 00:00:00 Completed [facility] HIB 4 Dose Schedule 2000-03-31 00:00:00 Completed [facility] Polio (IPV/OPV) 2000-03-31 00:00:00 Completed [facility] DTAP 2000-03-31 00:00:00 Completed [facility] HIB 4 Dose Schedule 2000-03-31 00:00:00 Completed [facility] Polio (IPV/OPV) 2000-03-31 00:00:00 Completed [facility] DTAP 2000-03-31 00:00:00 Completed [facility] HIB 4 Dose Schedule 2000-03-31 00:00:00 Completed [facility] Polio (IPV/OPV) 2000-03-31 00:00:00 Completed [facility] DTAP 2000-03-31 00:00:00 Completed [facility] HIB 4 Dose Schedule 2000-03-31 00:00:00 Completed [facility] Polio (IPV/OPV) 2000-03-31 00:00:00 Completed [facility] DTAP 2000-03-31 00:00:00 Completed [facility] HIB 4 Dose Schedule 2000-03-31 00:00:00 Completed [facility] Polio (IPV/OPV) 2000-03-31 00:00:00 Completed [facility] DTAP 2000-03-31 00:00:00 Completed [facility] HIB 4 Dose Schedule 2000-03-31 00:00:00 Completed [facility] Polio (IPV/OPV) 2000-03-31 00:00:00 Completed [facility] DTAP 2000-03-31 00:00:00 Completed [facility] HIB 4 Dose Schedule 2000-03-31 00:00:00 Completed [facility] Polio (IPV/OPV) 2000-03-31 00:00:00 Completed [facility] DTAP 2000-03-31 00:00:00 Completed [facility] HIB 4 Dose Schedule 2000-03-31 00:00:00 Completed [facility] Polio (IPV/OPV) 2000-03-31 00:00:00 Completed [facility] DTAP 2000-03-31 00:00:00 Completed [facility] HIB 4 Dose Schedule 2000-03-31 00:00:00 Completed [facility] Polio (IPV/OPV) 2000-03-31 00:00:00 Completed [facility] DTAP 2000-03-31 00:00:00 Completed [facility] HIB 4 Dose Schedule 2000-03-31 00:00:00 Completed [facility] Polio (IPV/OPV) 2000-03-31 00:00:00 Completed [facility] DTAP 2000-03-31 00:00:00 Completed [facility] HIB 4 Dose Schedule 2000-03-31 00:00:00 Completed [facility] Polio (IPV/OPV) 2000-03-31 00:00:00 Completed [facility] DTP - HIB (Tetramune) 2000-03-31 00:00:00 Completed [facility] Ipol Injection Injectable 2000-03-31 00:00:00 Completed [facility] DTAP 2000-01-04 00:00:00 Completed [facility] HIB 4 Dose Schedule 2000-01-04 00:00:00 Completed [facility] Polio (IPV/OPV) 2000-01-04 00:00:00 Completed [facility] DTAP 2000-01-04 00:00:00 Completed [facility] HIB 4 Dose Schedule 2000-01-04 00:00:00 Completed [facility] Polio (IPV/OPV) 2000-01-04 00:00:00 Completed [facility] DTAP 2000-01-04 00:00:00 Completed [facility] HIB 4 Dose Schedule 2000-01-04 00:00:00 Completed [facility] Polio (IPV/OPV) 2000-01-04 00:00:00 Completed [facility] DTAP 2000-01-04 00:00:00 Completed [facility] HIB 4 Dose Schedule 2000-01-04 00:00:00 Completed [facility] Polio (IPV/OPV) 2000-01-04 00:00:00 Completed [facility] DTAP 2000-01-04 00:00:00 Completed [facility] HIB 4 Dose Schedule 2000-01-04 00:00:00 Completed [facility] Polio (IPV/OPV) 2000-01-04 00:00:00 Completed [facility] DTAP 2000-01-04 00:00:00 Completed [facility] HIB 4 Dose Schedule 2000-01-04 00:00:00 Completed [facility] Polio (IPV/OPV) 2000-01-04 00:00:00 Completed [facility] DTAP 2000-01-04 00:00:00 Completed [facility] HIB 4 Dose Schedule 2000-01-04 00:00:00 Completed [facility] Polio (IPV/OPV) 2000-01-04 00:00:00 Completed [facility] DTAP 2000-01-04 00:00:00 Completed [facility] HIB 4 Dose Schedule 2000-01-04 00:00:00 Completed [facility] Polio (IPV/OPV) 2000-01-04 00:00:00 Completed [facility] DTAP 2000-01-04 00:00:00 Completed [facility] HIB 4 Dose Schedule 2000-01-04 00:00:00 Completed [facility] Polio (IPV/OPV) 2000-01-04 00:00:00 Completed [facility] DTAP 2000-01-04 00:00:00 Completed [facility] HIB 4 Dose Schedule 2000-01-04 00:00:00 Completed [facility] Polio (IPV/OPV) 2000-01-04 00:00:00 Completed [facility] DTAP 2000-01-04 00:00:00 Completed [facility] HIB 4 Dose Schedule 2000-01-04 00:00:00 Completed [facility] Polio (IPV/OPV) 2000-01-04 00:00:00 Completed [facility] DTAP 2000-01-04 00:00:00 Completed [facility] HIB 4 Dose Schedule 2000-01-04 00:00:00 Completed [facility] Polio (IPV/OPV) 2000-01-04 00:00:00 Completed [facility] DTAP 2000-01-04 00:00:00 Completed [facility] HIB 4 Dose Schedule 2000-01-04 00:00:00 Completed [facility] Polio (IPV/OPV) 2000-01-04 00:00:00 Completed [facility] DTAP 2000-01-04 00:00:00 Completed [facility] HIB 4 Dose Schedule 2000-01-04 00:00:00 Completed [facility] Polio (IPV/OPV) 2000-01-04 00:00:00 Completed [facility] DTAP 2000-01-04 00:00:00 Completed [facility] HIB 4 Dose Schedule 2000-01-04 00:00:00 Completed [facility] Polio (IPV/OPV) 2000-01-04 00:00:00 Completed [facility] DTAP 2000-01-04 00:00:00 Completed [facility] HIB 4 Dose Schedule 2000-01-04 00:00:00 Completed [facility] Polio (IPV/OPV) 2000-01-04 00:00:00 Completed [facility] DTAP 2000-01-04 00:00:00 Completed [facility] HIB 4 Dose Schedule 2000-01-04 00:00:00 Completed [facility] Polio (IPV/OPV) 2000-01-04 00:00:00 Completed [facility] DTP - HIB (Tetramune) 2000-01-04 00:00:00 Completed [facility] Ipol Injection Injectable 2000-01-04 00:00:00 Completed [facility] MMR Booster Unknown Completed [facility] Hepatitis A Adult Unknown Completed [facility] PPD (TB) Unknown Completed [facility] Varicella (varivax)(chicken pox) Unknown Completed [facility] HEP B, Adult Dosage Unknown Completed [facility] TDAP (ADACEL) VACCINE Unknown Completed [facility] DTAP Unknown Completed [facility] HIB 4 Dose Schedule Unknown Completed [facility] Hep B, Adol or Pedi Dosage Unknown Completed [facility] HPV Unknown Completed [facility] Meningococcal Vaccine Unknown Completed [facility] Pneumococcal 13 Conjugate, PCV13 (Prevnar 13) Unknown Completed [facility] Polio (IPV/OPV) Unknown [facility] (hep a/hep b) Unknown Completed [facility] SARS-COV-2 COVID-19 MODERNA 12+ YRS VACCINE Unknown Completed [facility] MMR Booster Unknown Completed [facility] Hepatitis A Adult Unknown Completed [facility] PPD (TB) Unknown Completed [facility] Varicella (varivax)(chicken pox) Unknown Completed [facility] HEP B, Adult Dosage Unknown Completed [facility] TDAP (ADACEL) VACCINE Unknown Completed [facility] DTAP Unknown Completed [facility] HIB 4 Dose Schedule Unknown Completed [facility] Hep B, Adol or Pedi Dosage Unknown Completed [facility] HPV Unknown Completed [facility] Meningococcal Vaccine Unknown Completed [facility] Pneumococcal 13 Conjugate, PCV13 (Prevnar 13) Unknown Completed [facility] Polio (IPV/OPV) Unknown Completed [facility] (hep a/hep b) Unknown Completed [facility] SARS-COV-2 COVID-19 MODERNA 12+ YRS VACCINE Unknown Completed [facility] MMR Booster Unknown Completed [facility] Hepatitis A Adult Unknown Completed [facility] PPD (TB) Unknown Completed [facility] Varicella (varivax)(chicken pox) Unknown Completed [facility] HEP B, Adult Dosage Unknown Completed [facility] TDAP (ADACEL) VACCINE Unknown Completed [facility] DTAP Unknown Completed [facility] HIB 4 Dose Schedule Unknown Completed [facility] Hep B, Adol or Pedi Dosage Unknown Completed [facility] HPV Unknown Completed [facility] Meningococcal Vaccine Unknown Completed [facility] Pneumococcal 13 Conjugate, PCV13 (Prevnar 13) Unknown Completed [facility] Polio (IPV/OPV) Unknown Completed [facility] (hep a/hep b) Unknown Completed [facility] SARS-COV-2 COVID-19 MODERNA 12+ YRS VACCINE Unknown Completed [facility] Vital Signs Vital Name Observation Time Observation Value Comments S ource Systolic blood pressure 2025-03-16 13:13:00 120 mm[Hg] [facility] Diastolic blood pressure 2025-03-16 13:13:00 68 mm[Hg] [facility] Heart rate 2025-03-16 13:13:00 65 /min [facility] Body temperature 2025-03-16 13:13:00 37.06 Supriya [facility] Respiratory rate 2025-03-16 13:13:00 18 /min [facility] Body height 2025-03-16 13:13:00 [facility] 2025-03-16 13:13:00 [facility] BMI 2025-03-16 13:13:00 28.20 kg/m2 [facility] O[facility] saturation in Arterial blood by Pulse oximetry 2025-03-16 13:13:00 100 /min [facility] Systolic blood pressure 2023-04-18 20:49:00 99 mm[Hg] [facility] Diastolic blood pressure 2023-04-18 20:49:00 65 mm[Hg] [facility] Heart rate 2023-04-18 20:49:00 70 /min [facility] Body temperature 2023-04-18 20:49:00 36.94 Supriya [facility] Body height 2023-04-18 20:49:00 162.6 [facility] 2023-04-18 20:49:00 72.439 kg [facility] BMI 2023-04-18 20:49:00 27.41 kg/m2 [facility] in Arterial blood by Pulse oximetry 2023-04-18 20:49:00 100 /min [facility] Systolic blood pressure 2023-04-08 18:40:00 107 mm[Hg] [facility] Diastolic blood pressure 2023-04-08 18:40:00 67 mm[Hg] [facility] Heart rate 2023-04-08 18:40:00 98 /min [facility] Body temperature 2023-04-08 18:40:00 37.11 Supriya [facility] Body height 2023-04-08 18:40:00 162.6 cm [facility] Body weight 2023-04-08 18:40:00 72.122 kg [facility] BMI 2023-04-08 18:40:00 27.29 kg/m2 [facility] Oxygen saturation in Arterial blood by Pulse oximetry 2023-04-08 18:40:00 100 /min [facility] Systolic blood pressure 2022-10-29 02:43:00 120 mm[Hg] [facility] Diastolic blood pressure 2022-10-29 02:43:00 82 mm[Hg] [facility] Heart rate 2022-10-29 02:43:00 70 /min [facility] Body temperature 2022-10-29 02:43:00 37.22 Supriya [facility] Respiratory rate 2022-10-29 02:43:00 16 /min [facility] Body height 2022-10-29 02:43:00 162.6 cm [facility] Body weight 2022-10-29 02:43:00 66.679 kg [facility] BMI 2022-10-29 02:43:00 25.23 kg/m2 [facility] Oxygen saturation in Arterial blood by Pulse oximetry 2022-10-29 02:43:00 99 /min [facility] Systolic blood pressure 2023-04-18 20:49:00 99 mm[Hg] [facility] Diastolic blood pressure 2023-04-18 20:49:00 65 mm[Hg] [facility] Heart rate 2023-04-18 20:49:00 70 /min [facility] Body temperature 2023-04-18 20:49:00 36.94 Supriya [facility] Body height 2023-04-18 20:49:00 162.6 cm [facility] Body weight 2023-04-18 20:49:00 72.439 kg [facility] BMI 2023-04-18 20:49:00 27.41 kg/m2 [facility] Oxygen saturation in Arterial blood by Pulse oximetry 2023-04-18 20:49:00 100 /min [facility] Systolic blood pressure 2023-03-31 20:06:00 108 mm[Hg] [facility] Diastolic blood pressure 2023-03-31 20:06:00 61 mm[Hg] [facility] Heart rate 2023-03-31 20:06:00 67 /min [facility] Respiratory rate 2023-03-31 20:06:00 20 /min [facility] Body height 2023-03-31 20:06:00 162.6 cm [facility] Body weight 2023-03-31 20:06:00 [facility]213 [facility] BMI 2023-03-31 20:06:00 27.33 kg/m2 [facility] Systolic blood pressure 2023-02-17 18:36:00 117 mm[Hg] [facility] Diastolic blood pressure 2023-02-17 18:36:00 65 mm[Hg] [facility] Heart rate 2023-02-17 18:36:00 75 /min [facility] Respiratory rate 2023-02-17 18:36:00 18 /min [facility] Body height 2023-02-17 18:36:00 162.6 cm [facility] Body weight 2023-02-17 18:36:00 71.079 kg [facility] BMI 2023-02-17 18:36:00 26.90 kg/m2 [facility] Body temperature 2022-10-29 02:43:00 37.22 Supriya [facility] Oxygen saturation in Arterial blood by Pulse oximetry 2022-10-29 02:43:00 99 /min [facility] Systolic blood pressure 2022-08-26 17:57:00 111 mm[Hg] [facility] Diastolic blood pressure 2022-08-26 17:57:00 68 mm[Hg] [facility] Heart rate 2022-08-26 17:57:00 70 /min [facility] Respiratory rate 2022-08-26 17:57:00 18 /min [facility] Body height 2022-08-26 17:57:00 162.6 [facility] Body weight 2022-08-26 17:57:00 67.586 [facility] BMI 2022-08-26 17:57:00 25.58 kg/m2 [facility] Oxygen saturation in Arterial blood by Pulse oximetry 2022-05-07 19:45:00 98 /min [facility] Body temperature 2022-02-08 16:06:00 36.94 Supriya [facility] Procedures Procedure Date / Time Performed Performing Clinician Source AUTHORIZATION FOR RELEASE OF PHI 2023-07-08 05:01:00 Doctor Unassigned, [place] [facility] COVID-19 (MOLECULAR TESTING NUCLEIC ACID AMPLIFICATION) 2023-04-08 19:01:00 Devante Eagle [facility] LAB ONLY COVID INTERPRETATION 2023-04-08 19:01:[address] [facility] PATIENT FINANCIAL POLICY 2023-02-17 18:48:31 Doctor Unassigned, [place] [facility] PATIENT FINANCIAL POLICY 2023-02-17 18:48:31 Doctor Unassigned, [place] [facility] XR ELBOW >3 VW RIGHT 2022-10-29 03:17:01 Janny Hermosillo [facility] NOTICE OF PRIVACY PRACTICES 2022-10-29 02:32:34 Doctor Unassigned, [place] [facility] CONSENT/REFUSAL FOR DIAGNOSIS AND TREATMENT 2022-10-29 02:30:44 Doctor Unassigned, [place] [facility] CONSENT/REFUSAL FOR DIAGNOSIS AND TREATMENT 2022-08-26 17:52:18 Doctor Unassigned, [place] [facility] ASSIGNMENT OF BENEFITS 2022-08-26 17:51:58 Docto r Unassigned, [place] [facility] ASSIGNMENT OF BENEFITS 2022-08-26 17:51:58 Docto r Unassigned, [place] [facility] PATIENT INFORMATION 2022-08-26 05:01:00 Doctor Unassigned, [place] [facility] AUTHORIZATION FOR RELEASE OF PHI 2022-08-26 05:01:00 Doctor Unassigned, [place] [facility] VACCINATIONS - CONSENTS, ELIGIBILITY, HISTORY 2022-07-02 05:01:00 Doctor Unassigned, [place] [facility] VACCINATIONS - CONSENTS, ELIGIBILITY, HISTORY 2022-07-02 05:01:00 Doctor Unassigned, [place] [facility] [U] XRAY KNEE 4 OR MORE VWS LEFT [id number] 2019-08-10 00:00:00 [facility] En[facility] Start Date/Time End Date/Time Encounter Type Admission Type Attending [facility] Care Facility Care Department Encounter ID Source 2025-03-16 00:00:00 2025-03-18 11:41:15 Patient Secure Devante Epperson [facility] JAVIER?[facility] 1.84.114 350.1.13.10 4.2.7.2.686 [id number] [facility] 2025-03-18 00:00:00 2025-03-18 11:40:33 Patient Secure Devante Epperson [facility] JAVIER?PI[facility]RE [facility] 1.84.114 350.1.13.10 4.2.7.2.686 [id number] [facility] 2025-03-16 08:45:00 2025-03-16 09:00:00 Web User Experience Strategist Visit Lab, Sathya Cohen F[facility] Lab, Sathya - Noel [facility] JAVIER?PIERRE [facility] 1.84.114 350.1.13.10 4.2.7.2.686 [id number] [facility] 2025-03-16 08:00:00 2025-03-16 08:38:18 Outpatient R DEVANTE EAGLE [facility] [id number] [facility] 2025-03-16 08:00:00 2025-03-16 08:38:18 Office Visit Devante Eagle [facility] JAVIER?[facility] 1.84.114 350.1.13.10 4.2.7.2.686 [id number] [facility] 2023-07-08 00:00:00 2023-07-08 00:00:00 Orders Only Doctor Unassigned, [place] [facility] 1.84.114 350.1.13.10 4.2.7.2.686 [id number] [facility] 2023-05-30 21:19:00 2023-05-30 23:15:00 Emergency EM Jermaine Hernandez [facility] [id number] [facility] 2023-04-22 00:00:00 2023-04-22 00:00:00 Refill Jackie Eastman 1.2.840.1 11074.1.1 3.104.2.7 .3.582595 .8 [id number] [facility] 2023-04-18 15:30:00 2023-04-18 15:58:21 Outpatient R DEVANTE EAGLE [facility] [id number] [facility] 2023-04-18 15:30:00 2023-04-18 15:58:21 Office Visit Devante Eagle 1.2.840.1 90354.1.1 3.104.2.7 .3.431649 .8 [id number] [facility] 2023-04-18 00:00:00 2023-04-18 00:00:00 Travel 1.2.840.1 26188.1.1 3.104.2.7 .3.685009 .8 1.2.840.114 350.1.13.10 4.2.7.3.698 084.8 [id number] [facility] 2023-04-15 00:00:00 2023-04-15 00:00:00 Patient Secure Msg Devante Eagle 1.2.840.1 62560.1.1 3.104.2.7 .3.723608 .8 [id number] [facility] 2023-04-08 13:30:00 2023-04-08 16:06:32 Outpatient R DEVANTE EAGLE [facility] [id number] [facility] 2023-04-08 13:30:00 2023-04-08 16:06:32 Office Visit Devante Eagle 1.2.840.1 53128.1.1 3.104.2.7 .3.761447 .8 [id number] [facility] 2023-04-08 00:00:00 2023-04-08 00:00:00 Patient Secure Isi Uribe 1.2.840.1 69979.1.1 3.104.2.7 .3.632238 .8 [id number] [facility] 2023-04-08 00:00:00 2023-04-08 00:00:00 Letter (Out) Devante Eagle 1.2.840.1 68257.1.1 3.104.2.7 .3.381068 .8 [id number] [facility] 2023-04-08 00:00:00 2023-04-08 00:00:00 Travel 1.2.840.1 36865.1.1 3.104.2.7 .3.850435 .8 1.2.840.114 350.1.13.10 4.2.7.3.698 084.8 [id number] [facility] 2023-03-31 15:00:00 2023-03-31 16:29:57 Outpatient SIERRA ROSADO [facility] [id number] [facility] 2023-03-31 07:45:00 2023-03-31 07:45:00 Outpatient MINESH SORTO [facility] [id number] [facility] 2023-03-31 00:00:00 2023-03-31 00:00:00 Travel 1.2.840.1 99054.1.1 3.104.2.7 .3.986980 .8 1.2.840.114 350.1.13.10 4.2.7.3.698 084.8 [id number] [facility] 2023-02-25 00:00:00 2023-02-25 00:00:00 Telephone Jackie Eastman 1.2.840.1 14542.1.1 3.104.2.7 .3.854741 .8 [id number] [facility] 2023-02-17 13:30:00 2023-02-17 14:14:19 Outpatient SIERRA ROSADO [facility] [id number] [facility] 2023-02-17 00:00:00 2023-02-17 00:00:00 Orders Only Doctor Unassigned, [place] 1.2.840.1 89205.1.1 3.104.2.7 .3.654434 .8 [id number] [facility] 2023-01-23 00:00:00 2023-01-23 00:00:00 Refill Doctor Unassigned, [place] 1.2.840.1 53496.1.1 3.104.2.7 .3.049359 .8 [id number] [facility] 2023-01-21 00:00:00 2023-01-21 00:00:00 Refill Doctor Unassigned, [place] 1.2.840.1 96333.1.1 3.104.2.7 .3.927460 .8 [id number] [facility] 2022-10-28 20:47:00 2022-10-28 22:22:00 Emergency X HEIDI HERMOSILLO [facility] ERT [id number] [facility] 2022-10-28 20:47:00 2022-10-28 22:22:00 Emergency Heidi Hermosillo [facility] 1.2.840.114 350.1.13.10 4.2.7.2.686 [id number] [facility] 2022-09-30 14:15:00 2022-09-30 15:10:28 Outpatient SIERRA ROSADO [facility] [id number] [facility] 2022-09-06 00:00:00 2022-09-06 00:00:00 Refill Doctor Unassigned, [place] 1.2.840.1 62872.1.1 3.104.2.7 .3.143797 .8 [id number] [facility] 2022-08-26 12:45:00 2022-08-26 14:31:02 Outpatient SIERRA ROSADO [facility] [id number] [facility] 2022-08-26 00:00:00 2022-08-26 00:00:00 Orders Only Doctor Unassigned, [place] 1.2840.1 03129.1.1 3.104.2.7 .3.218246 .8 [id number] [facility] 2022-08-26 00:00:00 2022-08-26 00:00:00 Travel 1.2.840.1 92434.1.1 3.104.2.7 .3.651317 .8 1.0.114 350.1.13.10 4.2.7.3.698 084.8 [id number] [facility] 2022-07-02 00:00:00 2022-07-02 00:00:00 Telephone Jackie Eastman 1.840.1 67752.1.1 3.104.2.7 .3.662757 .8 [id number] [facility] 2022-07-02 00:00:00 2022-07-02 00:00:00 Orders Only Doctor Unassigned, [place] 1.840.1 83116.1.1 3.104.2.7 .3.976710 .8 [id number] [facility] 2022-06-17 00:00:00 2022-06-17 00:00:00 Patient Secure Msg Jackie Eastman 1.2.840.1 10162.1.1 3.104.2.7 .3.841877 .8 [id number] [facility] 2022-06-17 00:00:00 2022-06-17 00:00:00 Patient Secure Msg Jackie Eastman [facility] 1.840.114 350.1.13.10 4.2.7.2.686 [id number] [facility] 2022-06-17 00:00:00 2022-06-17 00:00:00 Patient Secure Jackie Borrego [facility] JAVIER?PIERRE [facility] 1.84.114 350.1.13.10 4.2.7.2.686 [id number] [facility] 2022-05-13 00:00:00 2022-05-13 00:00:00 Patient Secure g Doctor Unassigned, [place] [facility] 1.84.114 350.1.13.10 4.2.7.2.686 [id number] [facility] 2022-05-09 15:40:00 2022-05-09 15:46:36 Outpatient R JACKIE EASTMAN [facility] [id number] [facility] 2022-05-09 15:40:00 2022-05-09 15:46:36 Nurse Visit Nurse, [facility]athya [facility] 1.840.114 350.1.13.10 4.2.7.2.686 [id number] [facility] 2022-05-09 15:40:00 2022-05-09 15:40:00 Outpatient R JACKIE EASTMAN [facility] [id number] [facility] 2022-05-09 15:15:00 2022-05-09 15:30:00 Web User Experience Strategist Visit Lab, Sathya Cohen [facility]Critical access hospital JAVIER?[facility] 1.840.114 350.1.13.10 4.2.7.2.686 [id number] [facility] 2022-05-09 00:00:00 2022-05-09 00:00:00 Letter (Out) Tamie Eastmanformerly [facility] JAVIER?[facility] 1..840.114 350.1.13.10 4.2.7.2.686 [id number] [facility] 2022-05-07 14:30:00 2022-05-07 15:27:09 Outpatient R JACKIE EASTMAN [facility] [id number] [facility] 2022-05-07 14:30:00 2022-05-07 15:27:09 Office Visit Siobhan [facility]manCritical access hospital [facility] 1..840.114 350.1.13.10 4.2.7.2.686 [id number] [facility] 2022-04-25 14:00:00 2022-04-25 14:00:00 Outpatient R JACKIE EASTMAN [facility] [id number] [facility] 2022-04-16 08:00:00 2022-04-16 08:00:00 Outpatient R JACKIE EASTMAN [facility] [id number] [facility] 2022-02-28 00:00:00 2022-02-28 00:00:00 Refill Tamie Eastmanformerly [facility]FIN[facility] OFF[facility] ONE 1..840.114 350.1.13.10 4.2.7.2.686 [id number] [facility] 2022-02-08 09:30:00 2022-02-08 10:46:05 Outpatient R JACKIE EASTMAN [facility] [id number] [facility] 2021-12-25 00:00:00 2021-12-25 00:00:00 Patient Secure Msg Siobhan EastmanCritical access hospital JAVIER?[facility] 1..840.114 350.1.13.10 4.2.7.2.686 [id number] [facility] 2021-12-04 00:00:00 2021-12-04 00:00:00 Telephone Jackie East[facility] 1..840.114 350.1.13.10 4.2.7.2.686 [id number] 044 [id number] [facility] 2021-11-13 15:42:42 2021-11-13 16:12:42 [facility] 1..840.114 350.1.13.10 4.2.7.2.686 [id number] [facility] 2021-11-13 15:30:00 2021-11-13 15:30:00 Outpatient R JACKIE EASTMAN [facility] [id number] [facility] 2021-11-02 09:30:00 2021-11-02 15:39:43 Outpatient R JACKIE EASTMAN [facility] [id number] [facility] 2021-11-02 09:39:14 2021-11-02 10:09:14 Office Visit Jackie Eastman [facility] 1..840.114 350.1.13.10 4.2.7.2.686 [id number] [facility] 2021-11-02 09:30:00 2021-11-02 09:30:00 Outpatient R JACKIE EASTMAN [facility] [id number] [facility] 2021-08-13 00:00:00 2021-08-13 00:00:00 [facility] 1.2.840.114 350.1.13.10 4.2.7.2.686 [id number] [facility] 2021-08-03 00:00:00 2021-08-03 00:00:00 Mckay Tamie Eastmana [facility] 1.2.840.114 350.1.13.10 4.2.7.2.686 [id number] [facility] 2021-07-02 08:30:00 2021-07-02 08:30:00 Outpatient JACKIE ENGLISH [facility] [id number] [facility] 2021-06-29 14:20:00 2021-06-29 15:04:15 Outpatient DONNELL GONGTH [facility] [id number] [facility] 2021-06-29 14:20:00 2021-06-29 15:04:15 Outpatient R DEYSI ROBERT [facility] [id number] [facility] 2021-06-27 13:00:00 2021-06-27 13:00:00 Outpatient KERRIE SANTIAGO [facility] [id number] [facility] 2021-06-27 08:00:00 2021-06-27 08:00:00 Outpatient KERRIE SANTIAGO [facility] [id number] [facility] 2021-06-26 09:00:00 2021-06-26 09:00:00 Outpatient JACKIE ENGLISH [facility] [id number] [facility] 2021-06-26 09:00:00 2021-06-26 09:00:00 Outpatient JACKIE ENGLISH [facility] [id number] [facility] 2021-05-31 15:44:00 2021-05-31 19:26:00 Emergency X VIVIAN NOLASCO [facility] ERT [id number] [facility] 2021-05-31 15:44:00 2021-05-31 19:26:00 Emergency X VIVIAN NOLASCO [facility] E[facility] [id number] [facility] 2021-05-31 15:44:00 2021-05-31 19:26:00 Emergency X VIVIAN NOLASCO [facility] E[facility] [id number] [facility] 2021-05-31 15:00:00 2021-05-31 15:00:00 Outpatient JANNY LLOYD [facility] [id number] [facility] 2021-04-25 00:00:00 2021-04-25 00:00:00 Patient Secure Msg Doctor Unassigned, [place] [facility] 1.2.840.114 350.1.13.10 4.2.7.2.686 [id number] [facility] 2021-04-23 14:40:00 2021-04-23 14:40:00 Outpatient JACKIE ENGLISH [facility] [id number] [facility] 2021-04-20 16:00:00 2021-04-20 16:00:00 Outpatient JACKIE ENGLISH [facility] [id number] [facility] 2021-04-09 23:04:00 2021-04-10 02:05:00 Emergency X KRISTA BARBER [facility] E[facility] [id number] [facility] 2021-04-09 23:04:00 2021-04-10 02:05:00 Emergency X KRISTA BARBER [facility] E[facility] [id number] [facility] 2021-02-01 14:00:00 2021-02-01 14:00:00 Outpatient JACKIE ENGLISH [facility] [id number] [facility] 2020-08-15 16:00:00 2020-08-15 16:00:00 Outpatient GRIS MASCORRO [facility] [id number] [facility] 2020-08-14 15:00:00 2020-08-14 15:00:00 Outpatient GRIS MASCORRO [facility] [id number] [facility] 2020-08-11 13:00:00 2020-08-11 13:00:00 Outpatient GRIS MASCORRO [facility] [id number] [facility] 2020-07-19 13:15:00 2020-07-19 13:15:00 Outpatient R JACKIE EASTMAN [facility] [id number] [facility] 2020-06-25 15:00:00 2020-06-25 15:00:00 Outpatient R JACKIE EASTMAN [facility] [id number] [facility] 2020-06-15 09:20:00 2020-06-15 09:20:00 Outpatient R [facility] [id number] [facility] 2020-06-14 11:40:00 2020-06-14 11:40:00 Outpatient R [facility] [id number] [facility] 2020-06-06 17:20:00 2020-06-06 17:20:00 Outpatient R [facility] [id number] [facility] 2020-06-06 13:30:00 2020-06-06 13:30:00 Appointmen t; MAO XIE M.D. LI-YUNG HING, ANDREW, M.D. [facility] [[email or web address]] Orthopedics - [facility] [id number] [place] Phys[place] ans 2020-06-05 13:30:00 2020-06-05 13:30:00 Appointmen t; STAR LOVELACE Psy.D. OTT, SUMMER, Psy.D. [facility] [id number] [place] 2020-05-15 13:45:00 2020-05-15 13:45:00 Appointmen t; MAO XIE M.D. LI-YUNG HING, ANDREW, M.D. [facility] [[email or web address]] Orthopedics - [facility] [id number] [place] 2020-05-15 13:30:00 2020-05-15 13:30:00 Appointmen t; STAR LOVELACE Psy.D. OTT, SUMMER, Psy.D. [facility] [id number] [place] 2020-05-04 13:30:00 2020-05-04 13:30:00 Appointmen t; STAR LOVELACE Psy.D. OTT, SUMMER, PsyDanielle [facility] [id number] [place] 2020-05-04 13:15:00 2020-05-04 13:15:00 Appointmen t; MAO XIE M.D. LI-YUNG HING, ANDREW, M.D. [facility] [[email or web address]] Orthopedics [facility] [id number] [place] 2020-05-01 08:30:00 2020-05-01 08:30:00 Appointmen t; MAO XIE M.D. LI-YUNG HING, ANDREW, M.D. [facility] [id number] [place] 2020-04-25 15:20:04 2020-04-25 16:42:00 Emergency X MISSY MURRAY [facility] ERT [id number] [facility] 2020-04-25 15:00:00 2020-04-25 15:00:00 Outpatient R [facility] [id number] [facility] 2020-04-12 14:00:00 2020-04-12 14:00:00 Outpatient R [facility] [id number] [facility] 2020-03-16 14:15:00 2020-03-16 14:15:00 Outpatient R [facility] [id number] [facility] 2020-03-16 14:15:00 2020-03-16 14:15:00 Outpatient R [facility] [id number] [facility] 2020-03-16 11:30:00 2020-03-16 11:30:00 Outpatient R GRIS TONEY [facility] [id number] [facility] 2020-02-28 14:15:00 2020-02-28 14:15:00 Outpatient R JACKIE EASTMAN [facility] [id number] [facility] 2020-01-31 14:30:00 2020-01-31 14:30:00 Appointmen t; FRED GAMA P.A. SLOAN, DIONE, P.A. [facility] [[email or web address]] [place] [id number] [place] 2020-01-25 08:10:00 2020-01-25 08:10:00 Outpatient R JACKIE EASTMAN [facility] [id number] [facility] 2019-11-02 13:30:00 2019-11-02 13:30:00 Appointmen t; SANDER DE DIOS M.D. LOWE, WALTER, M.D. [facility] [id number] [place] 2019-08-10 11:00:00 2019-08-10 11:00:00 Appointmen t; FITO RIVERA P.A. PACINI, KRISTIN, P.A. [facility] [[email or web address]] Orthopedics at [facility] [id number] [place] Phys[place] Notes Date/Time Note Provider Source 2025-03-18 11:40:59 Bobo Chavez is a 24 year old female Pt returning clinics ph call. Pt was advised of results. No further questions. Tiffany Wagner [facility] 2025-03-18 11:39:44 Bobo Chavez is a 24 year old female Pt returning clinics ph call. Pt was advised of results. No further questions. Tiffany Wagner [facility] 2025-03-16 08:45:00 Images from the original note were not included. Venipuncture collection performed by clean technique on the left anticubitus. Total of 1 attempts were made. Slight pressure and a bandage/dressing were applied to the site(s). The patient experienced no complications. The following specimens were processed according to instructions and sent to [facility] laboratories per lab order on 03/16/2025 : LT BLUE SST 2 RED LAV 2 PPT DK GREEN (LiHep) DK GREEN (SodH) OCAMPO DK BLUE (K2) DK BLUE (S) ACD Blood Culture NIPT/NTD [facility] 2023-05-30 21:35:[address] [facility] ([facility]) EMERGENCY PROVIDER REPORT REPORT#:[id number] REPORT STATUS: Signed DATE:05/30/23 TIME:2134 PATIENT: BOBO CHAVEZ UNIT #: [id number] ROOM/BED: : 99 AGE: 22 SEX: F PCP PHYS: DOES_NOT KNOW SERVICE AUTHOR: Jermaine Hernandez MD * ALL edits or amendments must be made on the electronic/computer document * HPI-Allergic Reaction Free Text HPI Notes Free Text HPI Notes 22-year-old female with an allergy to doxycycline no other past medical history presents emergency department after exposure to vancomycin liquid to her bilateral forearms. 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 Patient states she began to feel a burning and itching to her forearms and noticed a rash. Patient immediately washed off her forearms and hands but continued to feel the burning and itching sensation. Patient denies shortness of breath, chest pain, abdominal pain, nausea vomiting, difficulty breathing. Patient is awake and alert in no acute distress. General Initial Greet Date/Time 05/30/232124 Presentation Chief Complaint Allergic reaction, Rash Hx Obtained From Patient Review of Systems ROS Statements All systems rev neg except as marked. Focused Review of Systems Constitutional Denies: Chills, Fever. Eyes Denies: Eye pain bilat, Redness bilat, Visual loss bilat. Respiratory Denies: Cough, productive, Shortness of breath. GI Denies: Abdominal pain, Diarrhea, Nausea, Vomiting. Skin Reports: Itching, Rash. Denies: Diaphoresis. Allergy/Immun Reports: Allergic reaction, Itching. Neurologic Denies: Change LOC, Dizziness, Focal weakness, Headache, Numbness, Slurred speech. Past Medical History - Adult Stated Complaint HIVES S/P VANCOMYCIN GETTING ON SKIN Allergies Coded Allergies: codeine (HIVES 05/30/23) doxycycline (HIVES 05/30/23) vancomycin (rash 05/30/23) Physical Exam Vital Signs Vital Signs First Documented: Result Date Time Pulse Ox 100 05/30 2119 B/P 118/65 05/30 2119 B/P Mean 82 05/30 2119 O2 Delivery Room air 05/30 2119 Temp 37.1 05/30 2119 Pulse 61 05/30 2119 Resp 18 05/30 2119 Last Documented: Result Date Time Pulse Ox 100 05/30 2315 B/P 105/64 05/30 2315 B/P Mean 77 05/30 2315 O2 Delivery Room air 05/30 2315 Temp 36.9 05/30 2315 Pulse 62 05/30 2315 Resp 18 05/30 2315 Review of Vital Signs Reviewed Focused PE General/Const General/Const Awake, Alert, No acute distress, Well appearing, Well developed , Well hydrated, Well nourished, Cooperative, Not toxic appearing MS Head Head Atraumatic, Normocephalic Eyes Eyes PERRL, No periorbital redness, No periorbital swelling, Conjunctiva NL Ears/Nose/Throat Ears/Nose/Throat Airway patent, Mucous membranes moist, Pharynx NL, No pooling of secretions, No facial swelling Resp/Chest Respiratory/Chest Breath sounds NL, Breath sounds = bilat, No respiratory distress, No rales, No rhonchi, No wheezing, No retractions, No stridor Cardiovascular Cardiovascular Heart rate NL, Regular rhythm, Heart sounds NL, Peripheral circulation NL Abdomen/GI Abdomen/GI Soft, Non-tender, No guarding, No rebound, BS normoactive Skin Skin Color NL, Warm, Dry, Turgor NL, No swelling Text/Dict Notes Skin is slightly erythematous in the forearms with faint scattered papules Neurologic Neurologic Oriented X3, Speech NL, No motor deficits, No sensory deficits, Gait NL Re-Evaluation MDM Free Text MDM Notes Free Text MDM Notes Differential diagnosis contact dermatitis, acute allergic reaction, anaphylaxis, among others. Not consistent with anaphylaxis. No systemic symptoms, vital signs stable symptoms improved after medications during ED course. Rx meds, follow-up with PCP, return precautions given. Patient understands and agrees to plan. )( Re-Evaluation/Progress #1 Time of Re-Eval 2304 )( Re-Eval Status Improved ED Course Medication(s) Ordered Medication(s) Ordered: Antihistamine Drugs Sig/Monica Start time Last Medication Dose Route Stop Time Status Admin Diphenhydramine HCl 50 MG X1ED STA 05/30 2133 DC 05/30 PO 05/30 Hormones And Synthetic Substit Sig/Monica Start time Last Medication Dose Route Stop Time Status Admin Prednisone 50 MG X1ED STA 05/30 2132 DC 05/30 PO 05/30 Patient Discharge Departure Vital Signs/Condition Vital Signs First Documented: Result Date Time Pulse Ox 100 05/30 2119 B/P 118/65 05/30 2119 B/P Mean 82 05/30 2119 O2 Delivery Room air 05/30 2119 Temp 37.1 05/30 2119 Pulse 61 05/30 2119 Resp 18 05/30 2119 Last Documented: Result Date Time Pulse Ox 100 05/30 2315 B/P 105/64 05/30 2315 B/P Mean 77 05/30 2315 O2 Delivery Room air 05/30 2315 Temp 36.9 05/30 2315 Pulse 62 05/30 2315 Resp 18 05/30 2315 All vital signs available at the time of this entry have been reviewed. Condition Stable Clinical Impression Clinical Impression Primary Impression: Acute allergic reaction Disposition Decision Discharge )( Discharged to Home Yes )( Time 2305 )( Date 05/30/23 Discharge/Care Plan Counseled Regarding Diagnosis, Prescriptions, Need for follow-up, When to return to ED (Auto) Prescriptions Current Visit Scripts predniSONE 50 MG PO DAILY predniSONE 50 MG PO DAILY #5 TABS EPINEPHrine (EPIPEN (0.6mL = BOX OF 2)) 0.3 MG IM ONCE EPINEPHrine (EPIPEN (0.6mL = BOX OF 2)) 0.3 MG IM ONCE #0.6 ML Inject one time only as needed for severe allergic reaction. Patient Instructions ED General Allergic Reactions Referrals Provider Referral: Grace Burgos MD Follow-Up: Call for appointment Address: [address] [place] [id number] Discharge Note I have spoken with the patient and/or caregivers. I have explained the patient's condition, diagnoses and treatment plan based on the information available to me at this time. I have answered the patient's and/or caregiver's questions and addressed any concerns. The patient and/or caregivers have as good an understanding of the patient's diagnosis, condition and treatment plan as can be expected at this point. The vital signs have been stable. The patient's condition is stable and appropriate for discharge from the emergency department. The patient will pursue further outpatient evaluation with the primary care physician or other designated or consulting physician as outlined in the discharge instructions. The patient and/or caregivers are agreeable to this plan of care and follow-up instructions have been explained in detail. The patient and/or caregivers have received these instructions in written format and have expressed an understanding of the discharge instructions. The patient and/or caregivers are aware that any significant change in condition or worsening of symptoms should prompt an immediate return to this or the closest emergency department or a call to 911. at 0505 RPT #: [id number] END OF REPORT [facility]
[2025-03-20] MEDS ORDERED: NA CHLORIDE 0.9% 1,000 ML ONE (14:02)
--- NOTE | 2025-03-20 14:52 | RAD REPORT ---
Procedure: Chest Pa And Lat (2 Views) HISTORY: Cough COMPARISON: none FINDINGS: The lungs appear clear of acute infiltrate. No significant pleural effusion noted. The heart is normal size. IMPRESSION: No acute abnormality is displayed.
[2025-03-20 14:53] LABS: Absolute Eosinophils 0.1 K/uL (0-0.5); Absolute Lymphocytes (CBC) 2.2 K/uL (0.7-4.9); Absolute Monocytes 0.3 K/uL (0.1-1.3); Absolute Neutrophil 1.9 K/uL (1.8-8.0); Basophils % 0.2 % (0-1.3); Eosinophils % 1.3 % (0-4.4); Hematocrit 37.2 % (36.0-45.0); Hemoglobin 12.8 g/dL (12.0-15.0); Lymphocytes % 49.5 % (15.3-44.8); MCH 29.9 pg (27.0-35.0); MCHC 34.4 g/dL (32.0-36.0); MCV 87.1 fL (80-100); Monocytes % 7.2 % (3.3-12.3); Neutrophils % 41.8 % (41.7-73.7); Nucleated Red Blood Cells % 0.2 % (0-0); Platelets 200 thou/uL (152-406); RBC Red Blood Cell Count 4.28 M/uL (3.86-4.86); Red Cell Distribution Width 12.8 % (12.1-15.2)
[2025-03-20 15:02] LABS: AST/SGOT 11 U/L (15-37); Albumin 3.8 g/dL (3.4-5.0); Albumin/Globulin Ratio 1.2 (1.1-1.8); Alkaline Phosphatase 55 U/L (45-117); Anion Gap 5.5 mEq/L (5.0-15.0); BUN Blood Urea Nitrogen 14 mg/dL (7-18); Bicarbonate 28 mEq/L (21-32); Bilirubin Total 0.5 mg/dL (0.2-1.0); Globulin 3.1 g/dL (2.3-3.5); Glomerular Filtration Rate 125 ml/min (=/>90); Glucose Level 89 mg/dL (74-106); Potassium 3.5 mEq/L (3.5-5.1); Protein, Total 6.9 g/dL (6.4-8.2); Sodium Level 138 mEq/L (136-145)
[2025-03-20 15:03] LABS: ALT/SGPT < 14 U/L (13-56)
[2025-03-20 15:38] LABS: Influenza A Ag Negative; Influenza B Ag Negative; SARS-CoV-2 Antigen Rapid Res Negative (Negative)
--- NOTE | 2025-03-20 16:09 | EDPHYS ---
Physician Documentation [facility] Name: Melissa Silva Age: 24 yrs Sex: Female : 2000 Arrival Date: 03/20/2025 Time: 13:24 Bed 28 Private MD: ED Physician Ayden King HPI: 03/20 16:03 This 24 yrs old Unknown Female presents to ER via Ambulatory with complaints of Measles faiza Exposure. 16:03 The patient or guardian reports cough, described as mild. Onset: The symptoms/episode faiza began/occurred 3 day(s) ago. Modifying factors: The symptoms are alleviated by nothing. the symptoms are aggravated by nothing. COUGH AND CONGESTION , EXPOSURE TO MEASELS. Associated signs and symptoms: Pertinent positives: fever, rhinorrhea, sore throat. Severity of symptoms: At their worst the symptoms were moderate in the emergency department the symptoms are unchanged. The patient has experienced similar episodes in the past, a few times. 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 - Infectious Disease History:: Denies. - Social history:: Smoking status: Patient denies any tobacco usage or history of. ROS: 16:04 Constitutional: Negative for fever, chills, and weight loss, Eyes: Negative for injury, faiza pain, redness, and discharge, ENT: Negative for injury, pain, and discharge, Neck: Negative for injury, pain, and swelling, Cardiovascular: Negative for chest pain, palpitations, and edema, Abdomen/GI: Negative for abdominal pain, nausea, vomiting, diarrhea, and constipation, Back: Negative for injury and pain, : Negative for injury, bleeding, discharge, and swelling, MS/Extremity: Negative for injury and deformity, Skin: Negative for injury, rash, and discoloration, Neuro: Negative for headache, weakness, numbness, tingling, and seizure, Psych: Negative for depression, anxiety, suicide ideation, homicidal ideation, and hallucinations, Allergy/Immunology: Negative for hives, rash, and allergies, Endocrine: Negative for neck swelling, polydipsia, polyuria, polyphagia, and marked weight changes, Hematologic/Lymphatic: Negative for swollen nodes, abnormal bleeding, and unusual bruising, 16:04 Respiratory: Positive for cough, "sounds productive", Exam: 16:04 Constitutional: This is a well developed, well nourished patient who is awake, alert, faiza and in no acute distress. Head/Face: Normocephalic, atraumatic. Eyes: Pupils equal round and reactive to light, extra-ocular motions intact. Lids and lashes normal. Conjunctiva and sclera are non-icteric and not injected. Cornea within normal limits. Periorbital areas with no swelling, redness, or edema. ENT: Nares patent. No nasal discharge, no septal abnormalities noted. Tympanic membranes are normal and external auditory canals are clear. Oropharynx with no redness, swelling, or masses, exudates, or evidence of obstruction, uvula midline. Mucous membranes moist. Neck: Trachea midline, no thyromegaly or masses palpated, and no cervical lymphadenopathy. Supple, full range of motion without nuchal rigidity, or vertebral point tenderness. No Meningismus. Chest/axilla: Normal chest wall appearance and motion. Nontender with no deformity. No lesions are appreciated. Cardiovascular: Regular rate and rhythm with a normal S1 and S2. No gallops, murmurs, or rubs. Normal PMI, no JVD. No pulse deficits. Respiratory: Lungs have equal breath sounds bilaterally, clear to auscultation and percussion. No rales, rhonchi or wheezes noted. No increased work of breathing, no retractions or nasal flaring. Abdomen/GI: Soft, non-tender, with normal bowel sounds. No distension or tympany. No guarding or rebound. No evidence of tenderness throughout. Back: No spinal tenderness. No costovertebral tenderness. Full range of motion. Skin: Warm, dry with normal turgor. Normal color with no rashes, no lesions, and no evidence of cellulitis. MS/ Extremity: Pulses equal, no cyanosis. Neurovascular intact. Full, normal range of motion., bilateral aka Neuro: Awake and alert, GCS 15, oriented to person, place, time, and situation. Cranial nerves II-XII grossly intact. Motor strength 5/5 in all extremities. Sensory grossly intact. Cerebellar exam normal. Normal gait. Psych: Awake, alert, with orientation to person, place and time. Behavior, mood, and affect are within normal limits. Vital Signs: 14:00 BP 108 / 64; Pulse 58; Resp 16; Temp 98.9(O); Pulse Ox 100% on R/A; Weight 74.84 kg; hb Height 5 ft. 4 in. ; 14:00 Body Mass Index 28.32 (74.84 kg, 162.56 cm) hb MDM: 13:56 Medical Screening Exam initiated faiza 16:05 Differential diagnosis: obstructed airway, tracheal injury, bronchitis, flu, URI, viral faiza Infection, bacterial infection, URI, bronchitis, pneumonia UTI, gastroenteritis, meningitis. Antibiotic administration: Not indicated. Differential Diagnosis sepsis, flu. Data reviewed: vital signs, nurses notes, lab test result(s). Consideration of Admission/Observation Escalation of care including admission/observation considered. I considered the following discharge prescriptions or medication management in the emergency department Medications were administered in the Emergency Department. See MAR. Test considered but Not performed: Ultrasound NO ECHO USG. Historians other than the Patient: PT WELL INVOLVED, INFORMED. Care significantly affected by the following chronic conditions: ASTHMA. 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 03/20 13:58 Order name: [facility] [place]. Lab Test; Complete Time: 16:00 [facility] 03/20 13:58 Order name: COVID-19 Ag + Flu A+B Ag; Complete Time: 16:00 [facility] 03/20 13:58 Order name: Group A Streptococcus Rapid; Complete Time: 16:00 [facility] 03/20 13:58 Order name: CBC with Diff; Complete Time: 14:59 [facility] 03/20 13:58 Order name: Comprehensive Metabolic Panel; Complete Time: 16:00 [facility] 03/20 15:37 Order name: Throat Culture EDVT 03/20 13:58 Order name: Chest Pa And Lat (2 Views) XRAY; Complete Time: 14:59 [facility] Administered Medications: 14:20 Drug: NS 0.9% IV 1000 ml IV at 1000 ml once; to be given as a bolus over 60 minutes hb Route: IV; Rate: 1000 ml; Site: right antecubital; Disposition Summary: 03/20/25 16:08 Discharge Ordered Notes: Location: Home [facility] Problem: new faiza Symptoms: have improved faiza Condition: Stable faiza Diagnosis - Contact with and (suspected) exposure to other communicable diseases - MEASELS faiza - Acute upper respiratory infection, unspecified faiza - Viral infection, unspecified faiza Followup: faiza - With: Private Physician - When: 2 - 3 days - Reason: Recheck today's complaints, Continuance of care, Re-evaluation by your physician Discharge Instructions: - Discharge Summary Sheet faiza - Cool Mist Vaporizer faiza - Upper Respiratory Infection, Adult, Rwgw-[id number] faiza - Cough, Adult, Affn-gj-Hhry faiza - Viral Respiratory Infection, Kgpy-Hg-Fhdh faiza - Cough, Adult faiza - Viral Illness, Adult faiza Forms: - Medication Reconciliation Form faiza - Antibiotic Education faiza - Prescription Opioid Use faiza - Patient Portal Instructions [facility] - Leadership Thank You Letter [facility] Prescriptions: - Tessalon Perles 100 mg Oral capsule - take 2 capsule ORAL route every 8 hours As needed; 30 capsule; Refills: 0, faiza Product Selection Permitted - Zithromax Z-Bridger 250 mg Oral Tablet - take 1 tablet ORAL route as directed for 5 days Day 1 - take two (2) tablets faiza one time. Day 2, 3, 4 , 5 take one (1) tablet once daily.; 6 tablet; Refills: 0, Product Selection Permitted Signatures: Dispatcher [employer] Ayden Cabrera MD MD cha Baxter, Heather, RN RN hb
--- NOTE | 2025-03-20 16:09 | ER ---
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 Reports cough, runny nose, fatigue, malaise, and decreased appetite x 3 days. Placed in reverse isolation room and mask in place at 1325. Coronavirus screen: At this time, the client does not indicate any symptoms associated with coronavirus-19. Ebola Screen: No symptoms or risks identified at this time. Risk Assessment: Do you want to hurt yourself or someone else? Patient reports no desire to harm self or others. Onset of symptoms was March 17, 2025. 13:25 Method Of Arrival: Ambulatory 13:25 Acuity: JUN 3 hb 14:00 Initial Sepsis Screen: Does the patient meet any 2 criteria? No. Patient's initial hb sepsis screen is negative. Does the patient have a suspected source of infection? No. Patient's initial sepsis screen is negative. Triage Assessment: 13:25 General: Appears in no apparent distress. Behavior is calm, cooperative. Pain: Denies hb pain. EENT: Reports nasal congestion nasal discharge. Neuro: Level of Consciousness is awake, alert, obeys commands, Oriented to person, place, time, situation. Cardiovascular: Patient's skin is warm and dry. Respiratory: Respiratory effort is even, unlabored, Respiratory pattern is regular, symmetrical. GI: No signs and/or symptoms were reported involving the gastrointestinal system. : No signs and/or symptoms were reported regarding the genitourinary system. Derm: Skin is pink, warm \T\ dry. Musculoskeletal: No signs and/or symptoms reported regarding the musculoskeletal system. 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 - Infectious Disease History:: Denies. - Social history:: Smoking status: Patient denies any tobacco usage or history of. Screenin:26 [facility] ED Fall Risk Assessment (Adult) History of falling in the last 3 months, hb including since admission No falls in past 3 months (0 pts) Confusion or Disorientation No (0 pts) Intoxicated or Sedated No (0 pts) Impaired Gait No (0 pts) Mobility Assist Device Used No (0 pt) Altered Elimination No (0 pt) Score/Fall Risk Level 0 - 2 = Low Risk Oriented to surroundings, Maintained a safe environment, Educated pt \T\ family on fall prevention, incl call for assistance when getting out of bed. Abuse screen: Denies threats or abuse. Denies injuries from another. Nutritional screening: No deficits noted. Tuberculosis screening: No symptoms or risk factors identified. Assessment: 13:30 General: See triage assessment . hb 13:45 Reassessment: Left voicemail for health department contact [phone]. hb 14:20 Reassessment: Spoke to Alyssia HUBER, awaiting return call from . hb 14:35 Reassessment: Per Lizette HUBER, send measles throat PCR for now. Swab sent to outside lab sammi and Anh notified. 16:25 Reassessment: Patient appears in no apparent distress at this time. Patient and/or hb family updated on plan of care and expected duration. Pain level reassessed. Patient is alert, oriented x 3, equal unlabored respirations, skin warm/dry/pink. Vital Signs: 14:00 BP 108 / 64; Pulse 58; Resp 16; Temp 98.9(O); Pulse Ox 100% on R/A; Weight 74.84 kg; hb Height 5 ft. 4 in. ; 14:00 Body Mass Index 28.32 (74.84 kg, 162.56 cm) hb ED Course: 13:25 Arm band placed on Patient placed in isolation room with mask in place. hb 13:47 Patient arrived in ED. sp 13:51 Triage completed. hb 13:56 Ayden King MD is Attending Physician. faiza 14:17 Initial lab(s) drawn, by me, sent to lab. Flu and/or RSV swab sent to lab. Strep swab hb sent to lab. Inserted saline lock: 22 gauge in right antecubital area, using aseptic technique. Blood collected. Flushed with 10 mL NS. 14:24 Bethany Hudson, RN is Primary Nurse. hb 14:26 Patient has correct armband on for positive identification. Placed in gown. Bed in low hb position. Call light in reach. Provided Education on: tests, result times. 14:27 Comprehensive Metabolic Panel Sent. hb 14:27 CBC with Diff Sent. hb 14:27 Group A Streptococcus Rapid Sent. hb 14:27 COVID-19 Ag + Flu A+B Ag Sent. hb 14:32 Chest Pa And Lat (2 Views) XRAY In Process Unspecified. EDMS 14:35 Misc. Lab Test Sent. hb 14:35 PCR throat swabs for measles x 2. hb 16:25 No provider procedures requiring assistance completed. IV discontinued, intact, hb bleeding controlled, No redness/swelling at site. Pressure dressing applied. Administered Medications: 14:20 Drug: NS 0.9% IV 1000 ml IV at 1000 ml once; to be given as a bolus over 60 minutes hb Route: IV; Rate: 1000 ml; Site: right antecubital; Medication: 13:30 VIS not applicable for this client. hb Outcome: 16:08 Discharge ordered by . faiza 16:25 Discharged to home ambulatory, with significant other, hb 16:25 Condition: stable 16:25 Discharge instructions given to patient, significant other, Instructed on discharge instructions, follow up and referral plans. medication usage, Demonstrated understanding of instructions, follow-up care, medications, Prescriptions given X 2, 16:25 Patient left the ED. hb Signatures: Dispatcher [employer] Ayden Cabrera MD MD cha Pinkerton, Shawna sp Baxter, Heather, RN RN hb Corrections: (The following items were deleted from the chart) 13:52 13:51 Arm band placed on hb hb
[2025-03-20 17:02] VITALS: BP 108/64; TEMP 98.9; O2SAT 100
== END 2025-03-20 16:25 | disposition home or self-care (01) ==
LOC: ER 13:24
DX: Z20.828 Contact with and (suspected) exposure to other viral communicable diseases (principal); J06.9 Acute upper respiratory infection, unspecified; B34.9 Viral infection, unspecified; Z11.52 Encounter for screening for COVID-19
CPT/HCPCS: 87070; 85025; 36415; 80053; 71046; 99284; 87428; J7030